=== PATIENT | female | born 1985 | race Caucasian/White ===

== ENCOUNTER 2019-03-13 00:08 | Emergency (ER) | payer OTHER ==
[~2019-03-13] VITALS: Ht 160 cm; Wt 127.9 kg
--- OUTSIDE RECORDS SUMMARY | ~2019-03-13 | XMS | Encounter Summary ---
Demographics + + + | Address | [address] | | | [place] [address] | + + + | Home Phone | | + + + | Preferred Language | Unknown | + + + | Marital Status | Unmarried Domestic Partner | + + + | Scientology Affiliation | Unknown | + + + | Race | White | + + + | Ethnic Group | Not or | + + + Author + + + | Author | [facility] [facility] | + + + | Organization | [facility] [employer] [facility] | + + + | Address | Unknown | + + + | Phone | Unavailable | + + + Support + + +---------+ + | Name | Relationship | Address | Phone | + + +---------+ + | Alen Perez | ECON | Unknown | | + + +---------+ + Care Team Providers + +------+ + | Care Wind Turbine Performance Engineer Name | Role | Phone | + +------+ + | Harpreet Hector MD | PCP | | + +------+ + Encounter Details +--------+ + + + + | Date | Type | Department | Care Team | Description | +--------+ + + + + | 08/20/ | Abstract | Digestive Health | Clinic, Surgery | | | 2019 | | [place] [facility] [address] | | | | | | [address] | | | | | | Mailcode: [place] | | | | | | for Health and | | | | | | Healing, [address] | | | | | | [place], [place] | | | | | | [address] | | | | | | [phone] | | | +--------+ + + + + Social History + +-------+ +--------+------+ | Tobacco Use | Types | Packs/Day | Years | Date | | | | | Used | | + +-------+ +--------+------+ | Never Assessed | | | | | + +-------+ +--------+------+ + + + | Sex Assigned at | Date Recorded | | | | + + + | Not on file | | + + + + + + + | Job Start Date | Occupation | Industry | + + + + | Not on file | Not on file | Not on file | + + + + + + + + | Travel History | Travel Start | Travel End | + + + + + + | No recent travel history available. | + + documented as of this encounter Plan of Treatment +--------+---------+ + + + | Date | Type | Specialty | Care Team | Description | +--------+---------+ + + + | 06/12/ | Office | Nutrition | [address] | | | 2019 | Visit | | [address] | | | | | | [place], | | | | | | [place] [address] | | +--------+---------+ + + + | 06/12/ | Office | Pain Management | Javon Gallego, | | | 2019 | Visit | | PhD [address] | | | | | | [place], [place] | | | | | | [address] | | | | | | [phone] | | | | | | | | +--------+---------+ + + + | 07/06/ | Office | Surgery | | | | 2019 | Visit | | | | +--------+---------+ + + + documented as of this encounter Visit Diagnoses Not on filedocumented in this encounter"
--- OUTSIDE RECORDS SUMMARY | ~2019-03-13 | XMS | Encounter Summary ---
Demographics + + + | Address | [address] | | | [place] [address] | + + + | Home Phone | | + + + | Preferred Language | Unknown | + + + | Marital Status | Unmarried Domestic Partner | + + + | Catholic Affiliation | Unknown | + + + | Race | White | + + + | Ethnic Group | Not or | + + + Author + + + | Author | [facility] | + + + | Organization | [facility] | + + + | Address | Unknown | + + + | Phone | Unavailable | + + + Support + + +---------+ + | Name | Relationship | Address | Phone | + + +---------+ + | Alen Perez | ECON | Unknown | | + + +---------+ + Care Team Providers + +------+ + | Care Molding Machine Operator Name | Role | Phone | + +------+ + | Harpreet Hector MD | PCP | | + +------+ + Encounter Details +--------+ + + + + | Date | Type | Department | Care Team | Description | +--------+ + + + + | 11/27/ | MyChart | Digestive Health | April Potts ACNP | RE: Pharmacy | | 2019 | Encounter | Center at [facility] [address] | [address] | | | | | [address] | [place], | | | | | Mailcode: Center | [place] [address] | | | | | for Health and | [phone] | | | | | [facility], [address] | | | | | | [place], [place] | | | | | | [address] | | | | | | [phone] | | | +--------+ + + + + Social History + +-------+ +--------+------+ | Tobacco Use | Types | Packs/Day | Years | Date | | | | | Used | | + +-------+ +--------+------+ | Former Smoker | | 1 | 3 | | + +-------+ +--------+------+ + +---+---+---+ | Smokeless Tobacco: | | | | | Never Used | | | | + +---+---+---+ + + + | Sex Assigned at [...] | | | | | | [place], | | | | | | [place] [address] | | +--------+---------+ + + + | 06/12/ | Office | Pain Management | Javon Gallego, | | | 2019 | Visit | | PhD [address] | | | | | | [place] | | | | | | [address] | | | | | | [phone] | | | | | | | | +--------+---------+ + + + | 07/06/ | Office | Surgery | | | | 2019 | Visit | | | | +--------+---------+ + + + documented as of this encounter Visit Diagnoses Not on filedocumented in this encounter"
--- OUTSIDE RECORDS SUMMARY | ~2019-03-13 | XMS | Encounter Summary ---
Demographics + + + | Address | [address] | | | [place] [address] | + + + | Home Phone | | + + + | Preferred Language | Unknown | + + + | Marital Status | Unmarried Domestic Partner | + + + | Latter Day Affiliation | Unknown | + + + | Race | White | + + + | Ethnic Group | Not or | + + + Author + + + | Author | [facility] [employer] [facility] | + + + | Organization | [facility] [employer] [facility] | + + + | Address | Unknown | + + + | Phone | Unavailable | + + + Support + + +---------+ + | Name | Relationship | Address | Phone | + + +---------+ + | Alen Perez | ECON | Unknown | | + + +---------+ + Care Team Providers + +------+ + | Care Dental Office Assistant Name | Role | Phone | + +------+ + | Harpreet Hector MD | PCP | | + +------+ + Reason for Referral Physical Therapy (Routine) +--------+--------+ + + + + | Status | Reason | Specialty | Diagnoses / | Referred By | Referred To | | | | | Procedures | Contact | Contact | +--------+--------+ + + + + | Closed | | Physical | Diagnoses | Welanjali, | Dar[facility] | | | | Therapy | Morbid | Madison Richard, | [address] | | | | | obesity | AGACNP [address] | | | | | (HCC) | [address] | Mailcode: | | | | | Procedures | [place], | [facility] | | | | | PHYSICAL | [place] | for Health | | | | | THERAPY | [address] | and Healing, | | | | | REFERRAL | Phone: | [address], | | | | | | | [address] | | | | | | Fax: | [place], [place] | | | | | | [phone] | [address] | | | | | | | Phone: | | | | | | | [phone] | | | | | | | Fax: | | | | | | | [phone] | +--------+--------+ + + + + Encounter Details +--------+ + + + + | Date | Type | Department | Care Team | Description | +--------+ + + + + | 08/20/ | Appliance Line Assembler | Digestive Health | Madison Cuevas, | Morbid obesity (HCC) | | 2019 | | Center at [facility] [address] | AGACNP [address] | (Primary Dx) | | | | [address] | Ave [place], [place] | | | | | Mailcode: Center | [address] | | | | | for Health and | | | | | | Healing, [address] | | | | | | [place], [place] | | | | | | [address] | | | | | | [phone] | | | +--------+ + + + [...] | [address] | | | 2020 | Visit | | [address] | | | | | | [place], | | | | | | [place] [address] | | +--------+---------+ + + + | 06/12/ | Office | Pain Management | Javon Gallego, | | | 2019 | Visit | | PhD [address] | | | | | | [place], [place] | | | | | | [address] | | | | | | [phone] | | | | | | | | +--------+---------+ + + + | 07/06/ | Office | Surgery | | | | 2019 | Visit | | | | +--------+---------+ + + + documented as of this encounter Visit Diagnoses + + | Diagnosis | + + | Morbid obesity (HCC) - Primary Morbid obesity | + + documented in this encounter"
--- OUTSIDE RECORDS SUMMARY | ~2019-03-13 | XMS | Encounter Summary ---
Demographics + + + | Address | [address] | | | [place] [address] | + + + | Home Phone | | + + + | Preferred Language | Unknown | + + + | Marital Status | Unknown | + + + | Synagogue Affiliation | Unknown | + + + | Race | Unknown | + + + | Ethnic Group | Unknown | + + + Author + + + | Author | [facility] | | | and [facility] | + + + | Organization | [facility] | | | and [place] | + + + | Address | Unknown | + + + | Phone | Unavailable | + + + Support +--------+ +---------+ + | Name | Relationship | Address | Phone | +--------+ +---------+ + | One No | ECON | Unknown | | +--------+ +---------+ + Care Team Providers + +------+ + | Care Rcis Name | Role | Phone | + +------+ + | Harpreet Hector MD | PCP | | + +------+ + Encounter Details +--------+ + + + + | Date | Type | Department | Care Team | Description | +--------+ + + + + | 10/26/ | Orders Only | [facility] | Conversion | | | 2018 | | CONVERSION DEP [address] | Transaction, | | | | | [address] | Provider Unknown | | | | | [place] | | | | | | [address] | (Fax) | | | | | [phone] | | | +--------+ + + + + Social History + +-------+ +--------+------+ | Tobacco Use | Types | Packs/Day | Years | Date | | | | | Used | | + +-------+ +--------+------+ | Never Smoker | | | | | + +-------+ [...] as of this encounter Plan of Treatment Not on filedocumented as of this encounter Visit Diagnoses Not on filedocumented in this encounter"
--- OUTSIDE RECORDS SUMMARY | ~2019-03-13 | XMS | Encounter Summary ---
Demographics + + + | Address | [address] | | | [place] [address] | + + + | Home Phone | | + + + | Preferred Language | Unknown | + + + | Marital Status | Unmarried Domestic Partner | + + + | Jehovah'S Witness Affiliation | Unknown | + + + | Race | White | + + + | Ethnic Group | Not or | + + + Author + + + | Author | [facility] | + + + | Organization | [facility] | + + + | Address | Unknown | + + + | Phone | Unavailable | + + + Support + + +---------+ + | Name | Relationship | Address | Phone | + + +---------+ + | Alen Preez | ECON | Unknown | | + + +---------+ + Care Team Providers + +------+ + | Care Transportation Department Head Name | Role | Phone | + +------+ + | Harpreet Hector MD | PCP | | + +------+ + Encounter Details +--------+ + + + + | Date | Type | Department | Care Team | Description | +--------+ + + + + | 08/21/ | Documentati | Digestive Health | April Potts ACNP | | | 2019 | on | Center at [facility] [address] | [address] | | | | | [address] | [place], | | | | | Mailcode: [place] | [place] [address] | | | | | for Health and | [phone] | | | | | [facility] [address] | | | | | | [place], [place] | | | | | | [address] | | | | | | [phone] | | | +--------+ + + + [...] | | | | | | [place], | | | | | | [place] [address] | | +--------+---------+ + + + | 06/12/ | Office | Pain Management | Javon Gallego, | | | 2019 | Visit | | PhD [address] | | | | | | [place] | | | | | | [address] | | | | | | [phone] | | | | | | | | +--------+---------+ + + + | 07/06/ | Office | Surgery | | | | 2019 | Visit | | | | +--------+---------+ + + + documented as of this encounter Visit Diagnoses Not on filedocumented in this encounter"
--- OUTSIDE RECORDS SUMMARY | ~2019-03-13 | XMS | Clinical Summary ---
Demographics + + + | Address | [address] | | | [place] [address] | + + + | Home Phone | | + + + | Preferred Language | Unknown | + + + | Marital Status | Unmarried Domestic Partner | + + + | Synagogue Affiliation | Unknown | + + + | Race | White | + + + | Ethnic Group | Not or | + + + Author + + + | Author | [facility] | + + + | Organization | [facility] | + + + | Address | Unknown | + + + | Phone | Unavailable | + + + Support + + +---------+ + | Name | Relationship | Address | Phone | + + +---------+ + | Alen Perez | ECON | Unknown | | + + +---------+ + Care Team Providers + +------+ + | Care Haul Truck Driver Name | Role | Phone | + +------+ + | Harpreet Hector MD | PCP | | + +------+ + Source Comments TWIN is fully live on both [facility] and [facility] InPatient.[facility] Allergies No Known Allergies Medications + + + +---------+------+------+-------+ | Medication | Sig | Dispensed | Refills | Star | End | Statu | | | | | | t | Date | s | | | | | | Date | | | + + + +---------+------+------+-------+ | amLODIPine 5 mg | | | 0 | 06/2 | | Activ | | oral tablet | | | | 20 | | e | | | | | | 19 | | | + + + +---------+------+------+-------+ | ergocalciferol | Take 1 capsule by | 12 | 0 | 10/0 | | Activ | | 50,000 unit oral | mouth every seven | capsule | | 3/20 | | e | | capsuleIndications: | days. For 12 weeks | | | 19 | | | | vitamin D deficiency | Indications: Vitamin | | | | | | | (high dose therapy) | D Deficiency (High | | | | | | | | Dose Therapy) | | | | | | + + + +---------+------+------+-------+ | cholecalciferol | Take 1 capsule by | 90 | 1 | 10/0 | | Activ | | (Vitamin D3) | mouth once daily. | capsule | | 3/20 | | e | | (VITAMIN D3) 2,000 | | | | 19 | | | | unit oral capsule | | | | | | | + + + +---------+------+------+-------+ Active Problems + + + | Problem | Noted Date | + + + | Morbid obesity | 11/15/2018 | + + + Encounters +--------+ + + + + | Date | Type | Specialty | Care Team | Description | +--------+ + + + + | 03/12/ | MyChart | Surgery | | Bariatric homework | | 2019 | Encounter | | | list update | +--------+ + + + + | 02/04/ | MyChart | Surgery | Petcu, Aura, ACNP | Pre op | | 2018 | Encounter | | | | +--------+ + + + + | 01/06/ | Abstract | Surgery | Clinic, Surgery | Medical Records | | 2018 | | | | Review | +--------+ + + + + from Last 3 Months Family History + + +------+ + | Medical History | Relation | Name | Comments | + + +------+ + | No Known Problems | Brother | | | + + +------+ + + +------+--------+ + | Relation | Name | Status | Comments | + +------+--------+ + | Brother | | Alive | | + +------+--------+ + Social History + +-------+ +--------+------+ | [...] recent travel history available. | + + Last Filed Vital Signs + + + + + | Vital Sign | Reading | Time Taken | Comments | + + + + + | Blood Pressure | 131/81 | 11/15/2018 12:53 PM | | | | | PDT | | + + + + + | Pulse | 74 | 11/15/2018 12:53 PM | | | | | PDT | | + + + + + | Temperature | 36.9 C (98.4 F) | 11/15/2018 12:53 PM | | | | | PDT | | + + + + + | Respiratory Rate | 14 | 11/15/2018 12:53 PM | | | | | PDT | | + + + + + | Oxygen Saturation | 99% | 11/15/2018 12:53 PM | | | | | PDT | | + + + + + | Inhaled Oxygen | - | - | | | Concentration | | | | + + + + + | Weight | 128.3 kg (282 lb | 11/15/2018 12:53 PM | | | | 12.8 oz) | PDT | | + + + + + | Height | 160 cm (5' 3") | 11/15/2018 12:53 PM | | | | | PDT | | + + + + + | Body Mass Index | 50.1 | 11/15/2018 12:53 PM | | | | | PDT | | + + + + + Plan of Treatment +--------+---------+ + + + | Date | Type | Specialty | Care Team | Description | +--------+---------+ + + + | 06/12/ | Office | Nutrition | [address] | | | 2019 | Visit | | [address] | | | | | | [place], | | | | | | [place] [address] | | +--------+---------+ + + + | 06/12/ | Office | Pain Management | Javon Gallego, | | | 2019 | Visit | | PhD [address] | | | | | | [place], [place] | | | | | | [address] | | | | | | [phone] | | | | | | | | +--------+---------+ + + + | 07/06/ | Office | Surgery | | | | 2020 | Visit | | | | +--------+---------+ + + + + + + + + | Health Maintenance | Due Date | Last Done | Comments | + + + + + | Influenza (Flu) | Completed | 01/02/2019, 01/15/2018, | | | vaccination | | 12/22/2016, Additional history | | | | | exists | | + + + + + | Pneumococcal | Aged Out | | No longer eligible | | vaccination | | | based on patient's | | | | | age to complete this | | | | | topic | + + + + + Results Not on filefrom Last 3 Months Insurance + +--------+ +--------+-------+---------+--------+ | Payer | Benefi | Subscriber | Effect | Phone | Address | Type | | | t Plan | ID | jenny | | | | | | / | | Dates | | | | | | Group | | | | | | + +--------+ +--------+-------+---------+--------+ | [employer] MEDICAID | HEBREW TE[employer]ER | xxxxxxxx | | | | Medica | | | [place] | | [id number] | | | id | | | [place] | | esent | | | | + +--------+ +--------+-------+---------+--------+ + +--------+ +--------+ + + | Guarantor Name | Accoun | Relation to | Date | Phone | Billing Address | | | t Type | Patient | of | | | | | | | | | | + +--------+ +--------+ + + | Arely Squires | Person | Self | [birth year] | | | | al/Fam | | 1986 | [phone] | [place] [address] | | | [place] | | | 4 (Home) | | + +--------+ +--------+ + +
--- OUTSIDE RECORDS SUMMARY | ~2019-03-13 | XMS | Clinical Summary ---
Demographics + + + | Address | [address] | | | [place] [address] | + + + | Home Phone | | + + + | Preferred Language | Unknown | + + + | Marital Status | Unknown | + + + | Quaker Affiliation | Unknown | + + + | Race | Unknown | + + + | Ethnic Group | Unknown | + + + Author + + + | Author | [facility] [employer] (Historical as of | | | 10-12-18) | + + + | Organization | [facility] [employer] (Historical as of | | | 10-12-18) | + + + | Address | Unknown | + + + | Phone | Unavailable | + + + Support +--------+ +---------+ + | Name | Relationship | Address | Phone | +--------+ +---------+ + | No,One | ECON | Unknown | | +--------+ +---------+ + Care Team Providers + +------+ + | Care Pocketbook Maker Name | Role | Phone | + +------+ + | Harpreet Hector MD | PP | | + +------+ + Allergies No Known Allergies Current Medications + + +--------+---------+------+------+-------+ | Prescription | Sig. | Disp. | Refills | Star | End | Statu | | | | | | t | Date | s | | | | | | Date | | | + + +--------+---------+------+------+-------+ | amLODIPine | | | | 08/1 | | Activ | | (NORVASC) 5 MG | | | | 9/20 | | e | | tablet | | | | 18 | | | + + +--------+---------+------+------+-------+ | betamethasone | Apply nightly to | 50 g | 11 | 08/ | | Activ | | dipropionate | area of rash on | | | 03/17 | | e | | (DIPROLENE) 0.05 % | hand. Best applied | | | 18 | | | | ointmentIndications: | to damp skin. May | | | | | | | Contact dermatitis, | use 2 weeks/month. | | | | | | | unspecified contact | | | | | | | | dermatitis type, | | | | | | | | unspecified trigger | | | | | | | + + +--------+---------+------+------+-------+ Active Problems No known active problems Social History + +-------+ +--------+------+ | Tobacco Use | Types | Packs/Day | Years | Date | | | | | Used | | + +-------+ +--------+------+ | Never Smoker | | | | | + +-------+ +--------+------+ + +---+---+---+ | Smokeless Tobacco: | | | | | Never Used | | | | + +---+---+---+ + + + | Sex Assigned at | Date Recorded | | | | + + + | Not on file | | + + + Last Filed Vital Signs + + + + | Vital Sign | Reading | Time Taken | + + + + | Blood Pressure | - | - | + + + + | Pulse | - | - | + + + + | Temperature | - | - | + + + + | Respiratory Rate | - | - | + + + + | Oxygen Saturation | - | - | + + + + | Inhaled Oxygen | - | - | | Concentration | | | + + + + | Weight | 126.1 kg (278 lb) | 10/26/2017 9:58 AM PDT | + + + + | Height | 160 cm (5' 3") | 10/26/2017 9:58 AM PDT | + + + + | Body Mass Index | 49.25 | 10/26/2017 9:58 AM PDT | + + + + Plan of Treatment + + + + + | Health Maintenance | Due Date | Last Done | Comments | + + + + + | Vaccine: | | | | | Dtap/Tdap/Td (1 - | 7 | | | | Tdap) | | | | + + + + + | Cervical Cancer | | | | | Screening (Pap) | 8 | | | + + + + + | Vaccine: Influenza | | | | | (#1) | 9 | | | + + + + + Results Not on filefrom Last 3 Months Insurance + +--------+ +------+-------+ + | Payer | Benefi | Subscriber | Type | Phone | Address | | | t Plan | ID | | | | | | / | | | | | | | Group | | | | | + +--------+ +------+-------+ + | MEDICAID | [place] | [id number] | | | [address] | | | [place] | | | | [place] | | | [place] | | | | [address] | | | [employer] | | | | | + +--------+ +------+-------+ + + +--------+ +--------+ + + | Guarantor Name | Accoun | Relation to | Date | Phone | Billing Address | | | t Type | Patient | of | | | | | | | | | | + +--------+ +--------+ + + | ARELY SQUIRES | Person | Self | [birth year] | Home: | [address] | | al/Fam | | 1985 | [phone] [place] [address] | | | [place] | | | [phone] | | + +--------+ +--------+ + +
--- OUTSIDE RECORDS SUMMARY | ~2019-03-13 | XMS | Encounter Summary ---
Demographics + + + | Address | [address] | | | [place] [address] | + + + | Home Phone | | + + + | Preferred Language | Unknown | + + + | Marital Status | Unmarried Domestic Partner | + + + | Rastafari Affiliation | Unknown | + + + | Race | White | + + + | Ethnic Group | Not or | + + + Author + + + | Author | [facility] [employer] [facility] | + + + | Organization | [facility] [employer] [facility] | + + + | Address | Unknown | + + + | Phone | Unavailable | + + + Support + + +---------+ + | Name | Relationship | Address | Phone | + + +---------+ + | Alen Perez | ECON | Unknown | | + + +---------+ + Care Team Providers + +------+ + | Care Manager Bench Name | Role | Phone | + +------+ + | Harpreet Hector MD | PCP | | + +------+ + Encounter Details +--------+ + + + + | Date | Type | Department | Care Team | Description | +--------+ + + + + | 11/19/ | Orders Only | Digestive Health | April Potts ACNP | | | 2019 | | Center at [facility] [address] | [address] | | | | | [address] | [place], | | | | | Mailcode: [place] | [place] [address] | | | | | for Health and | [phone] | | | | | [facility] [address] | | | | | | [place], [place] | | | | | | [address] | | | | | | [phone] | | | +--------+ + + + [...] | | | | | | [place] [address] | | +--------+---------+ + + + | 06/12/ | Office | Pain Management | Javon Gallego, | | | 2019 | Visit | | PhD [address] | | | | | | [place] | | | | | | [address] | | | | | | [phone] | | | | | | | | +--------+---------+ + + + | 07/06/ | Office | Surgery | | | | 2019 | Visit | | | | +--------+---------+ + + + documented as of this encounter Visit Diagnoses Not on filedocumented in this encounter"
--- OUTSIDE RECORDS SUMMARY | ~2019-03-13 | XMS ---
Demographics + + + | Address | [address] | | | [place] [address] | + + + | Preferred Language | Unknown | + + + | Marital Status | Unknown | + + + | Advent Affiliation | Unknown | + + + | Race | Unknown | + + + | Ethnic Group | Unknown | + + + Author + + + | Author | [facility] | + + + | Organization | [facility] | + + + | Address | 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 | Role | Phone | + + + + Unavailable | Unavailable | + + + + PROBLEMS +---------+ + + +--------+ + + | Type | Condition | ICD9-CM | [id number] | Onset | Condition | SNOMED | | | | Code | Code | Dates | Status | Code | +---------+ + + +--------+ + + | Problem | Cough | 786.2 | | | Active | 27709056 | +---------+ + + +--------+ + + | Problem | Strep | 034.0 | | | Active | [id number] | | | throat | | | | | | +---------+ + + +--------+ + + | Problem | Otitis | 382.9 | | | Active | [id number] | | | media | | | | | | +---------+ + + +--------+ + + | Problem | Elevated | R94.5 | | | Active | [id number] | | | LFTs | | | | | | +---------+ + + +--------+ + + | Problem | Family | Z80.3 | | | Active | [id number] | | | history of | | | | | | | | breast | | | | | | | | cancer | | | | | | +---------+ + + +--------+ + + | Problem | Back pain | | M54.9 | | Active | [id number] | +---------+ + + +--------+ + + | Problem | NAFLD | K76.0 | | | Active | [id number] | | | (nonalcoho | | | | | | | | lic fatty | | | | | | | | liver | | | | | | | | disease) | | | | | | +---------+ + + +--------+ + + | Problem | Overweight | | E66.3 | | Active | 131419707 | +---------+ + + +--------+ + + | Problem | Candidal | B37.2 | | | Active | [id number] | | | intertrigo | | | | | | +---------+ + + +--------+ + + ALLERGIES + + + + +---------+ | Substance | Reaction | Event Type | Date | Status | + + + + +---------+ | N.K.D.A. | Unknown | Non Drug | June, | Unknown | | | | Allergy | | | + + + + +---------+ SOCIAL HISTORY No smoking Hx information available PLAN OF CARE + +---------+ | Activity | Details | + +---------+ +---+ | | +---+ + + + | Follow Up | 4 Weeks Reason:null | + + + VITAL SIGNS + + + + | Height | 63 in | 2016-07-20 | + + + + | Weight | 262 lbs | 2016-07-20 | + + + + | BMI | 46.41 kg/m2 | 2016-07-20 | + + + + | Temperature | 97.6 degrees Fahrenheit | 2016-07-20 | + + + + | Heart Rate | 88 /min | 2016-07-20 | + + + + | Blood pressure systolic | 149 mm Hg | 2016-07-20 | + + + + | Blood pressure diastolic | 85 mm Hg | 2016-07-20 | + + + + MEDICATIONS + + +--------+ +--------+ + +--------+ | Medicati | Instruct | Dosage | Frequenc | Start | End Date | Duration | Status | | on | ions | | y | Date | | | | + + +--------+ +--------+ + +--------+ | Daily | | | | | | | Active | | Multivit | | | | | | | | | salgado - | | | | | | | | + + +--------+ +--------+ + +--------+ RESULTS + +--------+ + + | Name | Result | Date | Reference Range | + +--------+ + + | EBV Ab VCA, IgG | | 2016-07-20 | | + +--------+ + + | EBV Ab VCA, IgG | | | | + +--------+ + + | EBV Ab VCA, IgM | | 2016-07-20 | | + +--------+ + + | EBV Ab VCA, IgM | | | | + +--------+ + + | TODD w/Reflex if | | 2016-07-20 | | | Positive | | | | + +--------+ + + | Antinuclear | | | | | Antibodies Direct | | | | + +--------+ + + | Lipid Panel | | 2016-07-20 | | + +--------+ + + | Cholesterol, Total | | | | + +--------+ + + | Triglycerides | | | | + +--------+ + + | HDL Cholesterol | | | | + +--------+ + + | VLDL Cholesterol | | | | | Ludwig | | | | + +--------+ + + | LDL Cholesterol | | | | | Calc | | | | + +--------+ + + | Comprehensive | | 2016-07-20 | | | Metabolic Panel | | | | + +--------+ + + | Hepatitis BC Panel | | 2016-07-20 | | + +--------+ + + | HBSAG | | | | + +--------+ + + | HEPATITIS B VIRUS | | | | | SURFACE ANTIBODY, | | | | | POST-VACCINATION | | | | + +--------+ + + | HEPATITIS B CORE | | | | | ANTIBODIES, TOTAL | | | | + +--------+ + + | HEPATITIS C VIRUS | | | | | ANTIBODY | | | | + +--------+ + + | INTERP | | | | + +--------+ + + | GGT | | 2016-07-20 | | + +--------+ + + | GGT | | | | + +--------+ + + | Smooth Muscle Ab | | 2016-07-20 | | + +--------+ + + | SMOOTH MUSCLE AB | | | | + +--------+ + + | Microsomal Antibody | | 2016-07-20 | | + +--------+ + + | MICROSOMAL ANTIBODY | | | | + +--------+ + + | CMV Detection by | | 2016-07-20 | | | Rapid PCR | | | | + +--------+ + + | CMV DNA | | | | + +--------+ + + | CMV Special Info | | | | + +--------+ + + | CMV Specimen Source | | | | + +--------+ + + | HGB A1C A1C | | 2016-07-20 | | + +--------+ + + | Gluc Mean | | | | + +--------+ + + | Hgb A1c | | | | + +--------+ + + | Ultrasound: Liver | | 2016-08-14 | | + +--------+ + + PROCEDURES + + + + + | Procedure | Date Ordered | Related Diagnosis | Body Site | + + + + + | EST Pt. Level V | July 20, 2016 | | | | Comprehensive | | | | + + + + + | DSCHRG MED/CURRENT | July 20, 2016 | | | | MED MERGE | | | | + + + + + IMMUNIZATIONS No Known Immunizations"
--- OUTSIDE RECORDS SUMMARY | ~2019-03-13 | XMS | Encounter Summary ---
Demographics + + + | Address | [address] | | | [place] [address] | + + + | Home Phone | | + + + | Preferred Language | Unknown | + + + | Marital Status | Unmarried Domestic Partner | + + + | Spiritism Affiliation | Unknown | + + + | Race | White | + + + | Ethnic Group | Not or | + + + Author + + + | Author | [facility] | + + + | Organization | [facility] | + [...] Team Providers + +------+ + | Care Rcp Name | Role | Phone | + +------+ + PCP | Unavailable | + +------+ + Encounter Details +--------+ + + + + | Date | Type | Department | Care Team | Description | +--------+ + + + + | 07/17/ | Abstract | [facility]ive [facility] | Clinic, Surgery | | | 2019 | | [place] [facility] [address] | | | | | | [address] | | | | | | Mailcode: [place] | | | | | [facility] | | | | | [facility], [address] | | | | | | [place], [place] | | | | | | [address] | | | | | | [phone] | | | +--------+ + + + [...] | | | | | [address] [place], | | | | | | [place] [address] | | +--------+---------+ + + + | 06/12/ | Office | Pain Management | Javon Gallego, | | | 2019 | Visit | | PhD [address] | | | | | | [place], [place] | | | | | | [address] | | | | | | [phone] | | | | | | | | +--------+---------+ + + + | 07/06/ | Office | Surgery | | | | 2019 | Visit | | | | +--------+---------+ + + + documented as of this encounter Visit Diagnoses Not on filedocumented in this encounter"
--- OUTSIDE RECORDS SUMMARY | ~2019-03-13 | XMS | Encounter Summary ---
Demographics + + + | Address | [address] | | | [place] [address] | + + + | Home Phone | | + + + | Preferred Language | Unknown | + + + | Marital Status | Unmarried Domestic Partner | + + + | Restorationist Affiliation | Unknown | + + + | Race | White | + + + | Ethnic Group | Not or | + + + Author + + + | Author | [facility] | + + + | Organization | [facility] | + + + | Address | Unknown | + + + | Phone | Unavailable | + + + Support + + +---------+ + | Name | Relationship | Address | Phone | + + +---------+ + | Alen Perez | ECON | Unknown | | + + +---------+ + Care Team Providers + +------+ + | Care Newspaper Delivery Counselor Name | Role | Phone | + +------+ + | Harpreet Hector MD | PCP | | + +------+ + Reason for Referral Consultation (Routine) + +---------+ + + + + | Status | Reason | Specialty | Diagnoses / | Referred By | Referred To | | | | | Procedures | Contact | Contact | + +---------+ + + + + | New Request | Other | Psychology / | Diagnoses | Petcu, | Drafter Seismograph Psych | | | | Pain | Morbid | Aura, ACNP | [facility] [address] | | | | Management | obesity | [address] | [address] | | | | | (RAFAEL) | [place] | Mailcode: | | | | | Procedures | Rd | [facility] | | | | | CONSULT TO | [place], [place] | for Health | | | | | PAIN | [address] | and Healing, | | | | | MANAGEMENT | Phone: | Building [address], | | | | | | [phone] | [address]th Floor | | | | | | Fax: | [place], [place] | | | | | | [phone] | [address] | | | | | | | Phone: | | | | | | | [phone] | | | | | | | Fax: | | | | | | | [phone] | + +---------+ + + + + Reason for Visit Consultation (Routine) +--------+ + + + + + | Status | Reason | Specialty | Diagnoses / | Referred By | Referred To | | | | | Procedures | Contact | Contact | +--------+ + + + + + | Closed | BAR: | Surgery | | Non-[facility] | Bar | | | Scheduled | | | Epic Dept | [facility] | | | with SUPERVISING ARCHITECT | | | | [facility] [address] | | | | | | | [address] | | | | | | | Mailcode: | | | | | | | Center for | | | | | | | Health and | | | | | | | Healing, | | | | | | | Building [address] | | | | | | | [place], [place] | | | | | | | [address] | | | | | | | Phone: | | | | | | | [phone] | | | | | | | Fax: | | | | | | | [phone] | +--------+ + + + + + Encounter Details +--------+---------+ + + + | Date | Type | Department | Care Team | Description | +--------+---------+ + + + | 11/15/ | Office | Digestive Health | April Potts ACNP | Morbid obesity (HCC) | | 2019 | Visit | Center at [facility] [address] | [address] | (Primary Dx) | | | | [address] | [address] [place], | | | | | Mailcode: [place] | [place] [address] | | | | | for Health and | [phone] | | | | | Healing, [address] | | | | | | [place], [place] | | | | | | [address] | | | | | | [phone] | | | +--------+---------+ + + + Social History + +-------+ [...] + + documented as of this encounter Last Filed Vital Signs + + + [...] | | + + + + + documented in this encounter Patient Instructions Patient Instructions April Potts ACNP - 11/15/2018 12:50 PM PDT Preoperative Evaluation fo r Bariatric Surgery: + Labs needed: CBC, CMP, A1C, Lipids, PTH, Vitamin D25, Vitamin B12, Ferritin, Iron and TIBC, Thiamine (B1), MMA and homocysteine (Folate indicators), + Please start taking a daily multivitamin such as Centrum for Adults, Equate Version of Ce ntrum for Adults ([employer] brand) and Hernández Daily Multivitamin + control: The patient and I discussed that fertility is MARKEDLY increased after carter joo due to rapid weight loss. Please consider using an effective form of control that does not have estrogen ( most control pills and the Nuva Ring have estrogen). Estroge n can be a risk factor for blood clots in legs or lungs. We do not want you to become pregna nt the first two years after surgery as it can harm the unborn baby. This is why we recommen d not getting in the first two years after bariatric surgery. The patient voiced an d understanding of the risk and counseling. + Pap test: Please obtain through your primary care and we want to see the lab result from the PAP smear. (not the note from your provider) + EKG: Please have your primary care provider order this and have the report faxed to us + Pre-op Psychological Evaluation: Your referral is at [facility], the Pain Management Office w ill call you in the next week to schedule. + CPAP compliance: you will need to show CPAP compliance prior to surgery + Recommended weight loss: Every patient has a individual weight loss target. It takes int o consideration your current weight and BMI. Your target most likely will be different than anyone elses target. Please contact us if you are having trouble with weight loss, we are he re to help! Measure your arm, waist, leg, and any other area of your body now so you can com pare after surgery! If your BMI is greater than 50 then your recommended weight loss target is 10% of your cur rent weight or 28lbs + Weight Management classes: 2 classes are required in addition to your private appointme nt with the disintegrator. These classes will be scheduled apporoximately 1 month apart to allow time for you to put the teaching into action. Please call [phone] to schedule these classes after you have had your Dietitia n Appointment You can over eat ANY of the surgeries. The surgery is a tool with diet and exercise to help you obtain a healthy weight. + Insurance requirements: 6 month evaluation Each insurance can have different requirements. Please CHECK with your insurance company to be sure you are meeting their requirements. If you have any questions please call your insu eleazar provider or call our main office number [phone] to have us help clarify. Note: It can take up to 1 year to get to surgery date. +patient willing and able to be compliant with post operative treatment plan + Sign up for RunRev so that we can communicate easily back and forth Once the above list is completed and copies have been received by our office, we will submi t for insurance authorization then schedule with the surgeon. +Please join us for our twice monthly [facility] Bariatric Support Group meetings on the WangYou platform. Download the yumiko on your smartphone or visit the website [email or web address]. Click "join a meeting " enter the meeting number below at the scheduled time. Our monthly schedule is as follows: The Sunday of every month at 5:30PM The Sunday of every month at 1:00PM The meeting number is: [phone] Please note that this is an optional support group, not mandatory, but can be helpful throu gh out your bariatric journey. Potential Contraindications to Bariatric Surgery Age over 69 BMI over 60 Oxygen dependence Immobility wheelchair or bed bound Cardiac issues such as ischemic heart disease as indicated on cardiac stress test or cardia c catheterization; severe or uncompensated heart failure which may be indicated by a decreas ed ejection fraction. Pulmonary issues such as untreated sleep apnea, obesity hypoventilation syndrome, severe CO PD or asthma. Liver disease such as cirrhosis, esophageal varices, or portal hypertension. Severe, untreated renal disease. Rheumatologic and other diseases requiring immune suppressant medications. Untreated or active cancer. Untreated psychological disability. If you have any of the above conditions, you may not be a candidate for bariatric surgery. Our program will perform a thorough evaluation prior to making such a determination. This evaluation may involve testing or consultations. We will make every effort to notify patien ts who are not candidates for surgery as early in the process as possible, but it is importa nt to realize that the surgeon may make that determination later in the process. Clearance for surgery by your PCP or other providers does not guarantee that the [facility] Bariatric Surger y program will deem you a surgical candidate. documented in this encounter Progress Notes Larry Stockton - 11/15/2018 12:50 PM PDTPatient presents for blood draw per Providers order Site: RIGHT A/C Time: 13:25 Patient tolerated well; TWO ATTEMPTS etcu, ROLANDO Chen - 2018 12:50 PM PDT BARIATRIC SURGERY INITIAL VISIT Provider: April Potts, MSN, -ACNP, DRILLING ENGINEER Referring Provider: Theresa Hector Reason for Requested Consultation: Initial evaluation for bariatric surgery. Arely lin is interested in sleeve gastrectomy. BP 131/81 | Pulse 74 | Temp 36.9 C (98.4 F) (Oral) | Resp 14 | Ht 1.6 m (5' 3") | Wt 128.3 kg (282 lb 12.8 oz) | SpO2 99% | BMI 50.10 kg/m | BSA 2.39 m History of Present Illness: Arely Squires is a 33 y.o. female who presents with a pas t medical history of morbid obesity with a Body mass index is 50.1 kg/m. and associated hy pertension. She has failed prior attempts at sustained dietary/medical weight loss and racheal res surgical weight loss in order to "to be able to live a better life". Previous Weight Loss Attempts: Duration of obesity: 6 years. Onset of obesity at age 27 First diet attempts at age 27 Personally initiated diets: keto Programmatic diets: none Provider Monitored diet: diabetic diet Use of Redux or Phen/fen: no Transthoracic ECHO: na Restorationist or cultural reason you would refuse blood products? no All previous chart notes from PCP reviewed, previous tests and labs reviewed. Allergies: No Known Allergies Medications Current Outpatient Medications: amLODIPine 5 mg oral tablet, , Disp: , Rfl: History: Past Medical History: Diagnosis Date GERD (gastroesophageal reflux disease) Headache Hypertension Irregular periods Leaking of urine SOB (shortness of breath) Past Surgical History Procedure Laterality Date Appendectomy Caesarean section Caesarean section Social History Socioeconomic History Marital status: Unmarried Domestic Partner Spouse name: Not on file Number of children: Not on file Years of education: Not on file Highest education level: Not on file Occupational History Not on file Social Needs Financial resource strain: Not on file Food insecurity: Worry: Not on file Inability: Not on file Transportation needs: Medical: Not on file Non-medical: Not on file Tobacco Use Smoking status: Former Smoker Packs/day: 1.00 Years: 3.00 Pack years: 3.00 Smokeless tobacco: Never Used Substance and Sexual Activity Alcohol use: Not on file Drug use: Not on file Sexual activity: Not on file Lifestyle Physical activity: Days per week: Not on file Minutes per session: Not on file Stress: Not on file Relationships Social connections: Talks on phone: Not on file Gets together: Not on file Attends muslim service: Not on file Active member of club or organization: Not on file Attends meetings of clubs or organizations: Not on file Relationship status: Not on file Other Topics Concern Not on file Social History Narrative Not on file Family History Problem Relation No Known Problems Brother Review of Systems: General: Intermittent symptoms of fatigue. Denies weakness, unintentional weight loss, fev ers, chills, night sweats. Neurologic: The patient denies any symptoms of neurological impairment or TIAs; denies dip lopia, dysphasia or unilateral disturbance of motor or sensory function. Denies loss of carol nce or vertigo, persistent headaches, numbness or paresthesias. No history of seizure disord er. Eyes/Ears/Nose/Throat: Denies visual changes, sore throat, dental pain, hoarseness, dyspha ruben, oral or tongue lesions. Respiratory: Positive SOBOE. Denies shortness of breath at rest, cough or wheezing. Denies history of asthma. Denies nocturnal snoring, daytime drowsiness or morning headaches. Posi tive sleep apnea. Cardiovascular: Denies exertional chest pain, palpitations, syncope, orthopnea, or paroxys mal nocturnal dyspnea. Denies history of lower extremity edema. Positive hypertension. Hema es hyperlipidemia. Denies CHF, AK, ischemic heart disease, DVT/PE, or pulmonary hypertension . States able to climb two flights of stairs. Family hxnone Gastrointestinal: Denies abdominal or flank pain, anorexia, nausea or vomiting, dysphagia, change in bowel habits, black or bloody stools. Denies history of ulcers or hernias. Denies persistent reflux symptoms. Denies history of liver disease or jaundice. Genitourinary: Denies urinary incontinence. Denies history of kidney stones. Denies pros birch sx. Denies menstrual irregularity, history of endometriosis or abnormal PAP's. Current method of control is: none. Musculoskeletal: Denies symptoms of joint pain, swelling, myalgias or back pain. Skin: Denies intertrigenous skin infections. Denies recent rashes, sores, or skin changes. Psychological: Denies anxiety, depression, thoughts of suicide or hallucinations. Heme/Lymphatic: Denies history of anemia. The patient denies abnormal bruising, abnormal b leeding or enlarged lymph nodes. Metabolic: Denies symptoms of hypo or hyperthyroidism. Denies history of diabetes. Denies history of gout. OBJECTIVE BP 131/81 | Pulse 74 | Temp 36.9 C (98.4 F) (Oral) | Resp 14 | Ht 1.6 m (5' 3") | Wt 128.3 kg (282 lb 12.8 oz) | SpO2 99% | BMI 50.10 kg/m | BSA 2.39 m Physical exam: General: Alert and cooperative. Neuro: Oriented x 3. CN III-XII grossly intact. No focal deficits. HEENT: Oropharynx clear without lesion or exudate. Neck: Neck supple. No adenopathy. Respiratory: Good diaphragmatic excursion. Cardiac: Regular rate and rhythm, no murmur, gallop or bruits. Extremities: none lower extremity edema. Abdomen: Obese, soft, nontender, no appreciable masses or hernia. Psych: No problems noted. Impression: Arely Squires meets and or exceeds NIH criteria for morbid obesity with a Body mass i ndex is 50.1 kg/m. and comorbidities related to obesity including hypertension, which may be improved with bariatric surgery. Records have been reviewed from her PCM and several att empts have been made to lose weight over the past years without success. She qualifies for medically necessary weight loss surgery to control co-morbidities. She has attended the Public Informational Session in which risks and benefits of bariatric surgery were discussed. Discussion of realistic expectations of bariatric surgery was held today. A Bariatric notebook with pre-op, inter-op and post-op guidance and information was provide d for the patient today. #morbid obesity #fatty liver #hx GM #GERD With food choices, occasional h2B #HTN amlodipine Plan: The following plan has been provided to Arely Squires: Preoperative Evaluation for Bariatric Surgery: + Labs needed: CBC, CMP, A1C, Lipids, PTH, Vitamin D25, Vitamin B12, Ferritin, Iron and TIBC, Thiamine (B1), MMA and homocysteine (Folate indicators), + Please start taking a daily multivitamin such as Centrum for Adults, Equate Version of Ce ntrum for Adults ([employer] brand) and Hernández Daily Multivitamin + control: The patient and I discussed that fertility is MARKEDLY increased after carter joo due to rapid weight loss. Please consider using an effective form of control that does not have estrogen ( most control pills and the Nuva Ring have estrogen). Estroge n can be a risk factor for blood clots in legs or lungs. We do not want you to become pregna nt the first two years after surgery as it can harm the unborn baby. This is why we recommen d not getting in the first two years after bariatric surgery. The patient voiced an d understanding of the risk and counseling. + Pap test: Please obtain through your primary care and we want to see the lab result from the PAP smear. (not the note from your provider) + EKG: Please have your primary care provider order this and have the report faxed to us + Pre-op Psychological Evaluation: Your referral is at [facility], the Pain Management Office w ill call you in the next week to schedule. + CPAP compliance: you will need to show CPAP compliance prior to surgery + Recommended weight loss: Every patient has a individual weight loss target. It takes int o consideration your current weight and BMI. Your target most likely will be different than anyone elses target. Please contact us if you are having trouble with weight loss, we are he re to help! Measure your arm, waist, leg, and any other area of your body now so you can com pare after surgery! If your BMI is greater than 50 then your recommended weight loss target is 10% of your cur rent weight or 28lbs + Weight Management classes: 2 classes are required in addition to your private appointme nt with the disintegrator. These classes will be scheduled apporoximately 1 month apart to allow time for you to put the teaching into action. Please call [phone] to schedule these classes after you have had your Dietitia n Appointment You can over eat ANY of the surgeries. The surgery is a tool with diet and exercise to help you obtain a healthy weight. + Insurance requirements: 6 month evaluation Each insurance can have different requirements. Please CHECK with your insurance company to be sure you are meeting their requirements. If you have any questions please call your insu eleazar provider or call our main office number [phone] to have us help clarify. Note: It can take up to 1 year to get to surgery date. +patient willing and able to be compliant with post operative treatment plan + Sign up for RunRev so that we can communicate easily back and forth Once the above list is completed and copies have been received by our office, we will submi t for insurance authorization then schedule with the surgeon. +Please join us for our twice monthly [facility] Bariatric Support Group meetings on the WangYou platform. Download the yumiko on your smartphone or visit the website [email or web address]. Click "join a meeting " enter the meeting number below at the scheduled time. Our monthly schedule is as follows: The Sunday of every month at 5:30PM The Sunday of every month at 1:00PM The meeting number is: [phone] Please note that this is an optional support group, not mandatory, but can be helpful throu gh out your bariatric journey. Potential Contraindications to Bariatric Surgery Age over 69 BMI over 60 Oxygen dependence Immobility wheelchair or bed bound Cardiac issues such as ischemic heart disease as indicated on cardiac stress test or cardia c catheterization; severe or uncompensated heart failure which may be indicated by a decreas ed ejection fraction. Pulmonary issues such as untreated sleep apnea, obesity hypoventilation syndrome, severe CO PD or asthma. Liver disease such as cirrhosis, esophageal varices, or portal hypertension. Severe, untreated renal disease. Rheumatologic and other diseases requiring immune suppressant medications. Untreated or active cancer. Untreated psychological disability. If you have any of the above conditions, you may not be a candidate for bariatric surgery. Our program will perform a thorough evaluation prior to making such a determination. This evaluation may involve testing or consultations. We will make every effort to notify patien ts who are not candidates for surgery as early in the process as possible, but it is importa nt to realize that the surgeon may make that determination later in the process. Clearance for surgery by your PCP or other providers does not guarantee that the [facility] Bariatric Surger y program will deem you a surgical candidate. April Potts, MSN, AG-ACNP, DRILLING ENGINEER Bariatric Surgery Nurse Practitioner [facility] | [address] | [place], [place] | [address] | I have spent 60 min with this pt face to face. Over 50% of the visit was counseling on the above listed content. documented in this enco unter Plan of Treatment +--------+---------+ + + + | Date | Type | Specialty | Care Team | Description | +--------+---------+ + + + | 06/12/ | Office | Nutrition | [address] | | 2019 | Visit | | [address] | | | | | | [place] | | | | | | [place] [address] | | +--------+---------+ + + + | 06/12/ | Office | Pain Management | Javon Gallego, | | | 2019 | Visit | | PhD [address] | | | | | | [place], [place] | | | | | | [address] | | | | | | [phone] | | | | | | | | +--------+---------+ + + + | 07/06/ | Office | Surgery | | | | 2020 | Visit | | | | +--------+---------+ + + + + + +--------+ + + | Name | Type | Priori | Associated Diagnoses | Order Schedule | | | | ty | | | + + +--------+ + + | ROUTINE | Procedures | Routin | Morbid obesity | Ordered: 11/15/2018 | | VENIPUNCTURE, | | e | ([facility]) | | | VENOUS-BACK OFFICE | | | | | + + +--------+ + + documented as of this encounter Procedures + +--------+ + + + | Procedure Name | Priori | Date/Time | Associated Diagnosis | Comments | | | ty | | | | + +--------+ + + + | CBC (HEMOGRAM) ONLY | Routin | 11/15/2018 | Morbid obesity | Results for this | | | e | 1:51 PM | (HCC) | procedure are in the | | | | PDT | | results section. | + +--------+ + + + | VITAMIN B1, WHOLE | Routin | 11/15/2018 | Morbid obesity | Results for this | | BLOOD | e | 1:51 PM | (HCC) | procedure are in the | | | | PDT | | results section. | + +--------+ + + + | VITAMIN D, | Routin | 11/15/2018 | Morbid obesity | Results for this | | 25-HYDROXY, SERUM | e | 1:51 PM | (HCC) | procedure are in the | | | | PDT | | results section. | + +--------+ + + + | HOMOCYSTEINE TOTAL, | Routin | 11/15/2018 | Morbid obesity | Results for this | | PLASMA | e | 1:51 PM | (HCC) | procedure are in the | | | | PDT | | results section. | + +--------+ + + + | COMPLETE METABOLIC | Routin | 11/15/2018 | Morbid obesity | Results for this | | SET | e | 1:51 PM | (HCC) | procedure are in the | | (NA,K,CL,CO2,BUN,CRE | | PDT | | results section. | | AT,GLUC,CA,AST,ALT,B | | | | | | ESTELITA TOTAL,ALK | | | | | | PHOS,ALB,PROT TOTAL) | | | | | + +--------+ + + + | METHYLMALONIC ACID, | Routin | 11/15/2018 | Morbid obesity | Results for this | | SERUM | e | 1:51 PM | (HCC) | procedure are in the | | | | PDT | | results section. | + +--------+ + + + | CBC ONLY | Routin | 11/15/2018 | Morbid obesity | Results for this | | | e | 1:51 PM | (HCC) | procedure are in the | | | | PDT | | results section. | + +--------+ + + + | FERRITIN | Routin | 11/15/2018 | Morbid obesity | Results for this | | | e | 1:51 PM | (HCC) | procedure are in the | | | | PDT | | results section. | + +--------+ + + + | PTH, SERUM | Routin | 11/15/2018 | Morbid obesity | Results for this | | | e | 1:51 PM | (HCC) | procedure are in the | | | | PDT | | results section. | + +--------+ + + + | LIPID SET (TRIG, T | Routin | 11/15/2018 | Morbid obesity | Results for this | | CHOL, HDL, CALC LDL) | e | 1:51 PM | (HCC) | procedure are in the | | | | PDT | | results section. | + +--------+ + + + | VITAMIN B-12 | Routin | 11/15/2018 | Morbid obesity | Results for this | | | e | 1:51 PM | (HCC) | procedure are in the | | | | PDT | | results section. | + +--------+ + + + | HEMOGLOBIN A1C, | Routin | 11/15/2018 | Morbid obesity | Results for this | | BLOOD | e | 1:51 PM | (HCC) | procedure are in the | | | | PDT | | results section. | + +--------+ + + + | IRON AND TIBC, SERUM | Routin | 11/15/2018 | Morbid obesity | Results for this | | | e | 1:51 PM | (HCC) | procedure are in the | | | | PDT | | results section. | + +--------+ + + + documented in this encounter Results CBC (HEMOGRAM) ONLY (11/15/2018 1:51 PM PDT) + +-------+ + + + | Component | Value | Ref Range | Performed | Pathologist | | | | | At | Signature | + +-------+ + + + | WHITE CELL | 4.63 | 3.50 - 10.80 | [facility] | | | COUNT | | K/cu mm | LABORATORY | | | | | | SERVICES, | | | | | | CORE | | + +-------+ + + + | RED CELL | 4.72 | 4.00 - 5.20 | [facility] | | | COUNT | | M/cu mm | LABORATORY | | | | | | SERVICES, | | | | | | CORE | | + +-------+ + + + | HEMOGLOBIN | 14.2 | 12.0 - 16.0 | [facility] | | | | | g/dL | LABORATORY | | | | | | SERVICES, | | | | | | CORE | | + +-------+ + + + | HEMATOCRIT | 41.7 | 36.0 - 46.0 % | [facility] | | | | | | LABORATORY | | | | | | SERVICES, | | | | | | CORE | | + +-------+ + + + | MCV | 88.3 | 80.0 - 100.0 fL | [facility] | | | | | | LABORATORY | | | | | | SERVICES, | | | | | | CORE | | + +-------+ + + + | MCHC | 34.1 | 32.0 - 36.0 | [facility] | | | | | g/dL | LABORATORY | | | | | | SERVICES, | | | | | | CORE | | + +-------+ + + + | RDW SD | 43.6 | 35.1 - 46.3 fL | [facility] | | | | | | LABORATORY | | | | | | SERVICES, | | | | | | CORE | | + +-------+ + + + | PLATELET | 211 | 150 - 400 K/cu | [facility] | | | COUNT | | mm | LABORATORY | | | | | | SERVICES, | | | | | | CORE | | + +-------+ + + + | MPV | 10.4 | 9.7 - 12.3 fL | [facility] | | | | | | LABORATORY | | | | | | SERVICES, | | | | | | CORE | | + +-------+ + + + | NRBC% | 0.0 | 0.0 - 0.3 % | [facility] | | | | | | LABORATORY | | | | | | SERVICES, | | | | | | CORE | | + +-------+ + + + | NRBC# | 0.00 | 0.00 - 0.02 | [facility] | | | | | K/cu mm | LABORATORY | | | | | | SERVICES, | | | | | | CORE | | + +-------+ + + + + + | Specimen | + + | Blood - Blood | | (substance) | + + + + + + + | Performing | Address | City/State/Zipcode | Phone Number | | Organization | | | | + + + + + | [facility] | [address] | [place] [address] | | | SERVICES, CORE | [address] | | | + + + + + VITAMIN D, 25-HYDROXY, SERUM (11/15/2018 1:51 PM PDT) + + + + + + | Component | Value | Ref Range | Performed | Pathologist | | | | | At | Signature | + + + + + + | VITAMIN D | 19.8 (L) | 30 - 80 ng/mL | [facility] | | | 25 HYDROXY | | | LABORATORY | | | | | | SERVICES, | | | | | | CORE | | + + + + + + + + | Specimen | + + | Blood - Blood | | (substance) | + + + + + | Narrative | Performed At | + + + | Reference Interval: 0-18years: Deficiency: <20 ng/mL | [facility] | | Optimum level: >or=20 ng/mL | LABORATORY | | >18years: Deficiency: <20 ng/mL | SERVICES, CORE | | Insufficiency: 20-29 ng/mL | | | Optimum Level: 30-80 ng/mL High: | | | 81-150 ng/ml Toxic: >150 ng/mL | | + + + + + + + + | Performing | Address | City/State/Zipcode | Phone Number | | Organization | | | | + + + + + | [facility] | [address] | [place] [address] | | | SERVICES, CORE | [address] | | | + + + + + VITAMIN B-12 11/15/2018 1:51 PM PDT) + +-------+ + + + | Component | Value | Ref Range | Performed | Pathologist | | | | | At | Signature | + +-------+ + + + | VITAMIN B12 | 398 | 193 - 986 pg/mL | [facility] | | | | | | LABORATORY | | | | | | SERVICES, | | | | | | CORE | | + +-------+ + + + + + | Specimen | + + | Blood - Blood | | (substance) | + + + + + + + | Performing | Address | City/State/Zipcode | Phone Number | | Organization | | | | + + + + + | [facility] | [address] | [place] [address] | | | SERVICES, CORE | [address] | | | + + + + + VITAMIN B1, WHOLE BLOOD (11/15/2018 1:51 PM PDT) + + + + + + | Component | Value | Ref Range | Performed | Pathologist | | | | | At | Signature | + + + + + + | VITAMIN B1, | 114Comment: INTERPRETIVE | 70 - 180 nmol/L | [facility] | | | WHOLE | INFORMATION: Vitamin | | REG UNIV | | | BLOOD | B1, Whole Blood This | | PTH - [facility] | | | | assay measures the | | | | | | concentration of | | | | | | thiamine diphosphate | | | | | | (TDP), the primary | | | | | | active form of vitamin | | | | | | B1. Approximately 90 | | | | | | percent of vitamin B1 | | | | | | present in whole blood | | | | | | is TDP. Thiamine and | | | | | | thiamine monophosphate, | | | | | | which comprise the | | | | | | remaining 10 percent, | | | | | | are not measured. Test | | | | | | developed and | | | | | | characteristics | | | | | | determined by [facility] | | | | | | Laboratories. See | | | | | | Compliance Statement B: | | | | | | [employer]/CSPerformed | | | | | | by [email or web address],[address] | | | | | | [address], [facility],[place] | | | | | | [address] | | | | | | [phone].[employer]. | | | | | | [facility] center[facility]andler MD, | | | | | | Lab. Director | | | | + + + + + + + + | Specimen | + + | Blood - Blood | | (substance) | + + + + + + + | Performing | Address | City/State/Zipcode | Phone Number | | Organization | | | | + + + + + | [facility] | [address] | [place], [place] | | | UNIV PTH - [facility] | | [address] | | + + + + + PTH, SERUM (11/15/2018 1:51 PM PDT) + +-------+ + + + | Component | Value | Ref Range | Performed | Pathologist | | | | | At | Signature | + +-------+ + + + | PTH, SERUM | 67 | 18 - 88 pg/mL | [facility] | | | | | | LABORATORY | | | | | | SERVICES, | | | | | | CORE | | + +-------+ + + + + + | Specimen | + + | Blood - Blood | | (substance) | + + + + + + + | Performing | Address | City/State/Zipcode | Phone Number | | Organization | | | | + + + + + | [facility] | [address] | [place] [address] | | | SERVICES, CORE | [address] | | | + + + + + METHYLMALONIC ACID, SERUM (11/15/2018 1:51 PM PDT) + + + + + + | Component | Value | Ref Range | Performed | Pathologist | | | | | At | Signature | + + + + + + | METHYLMALON | 0.15Comment: | 0.00 - 0.40 | [facility] | | | IC ACID | INTERPRETIVE | umol/L | REG UNIV | | | | INFORMATION: MMA | | PTH - [facility] | | | | Serum/Plasma, | | | | | | | | | | | | Vitamin B12 Status | | | | | | Test developed and | | | | | | characteristics | | | | | | determined by [facility] [facility] | | | | | | Laboratories. See | | | | | | Compliance Statement B: | | | | | | [employer]/CSPerformed | | | | | | by [email or web address],[address] | | | | | | [address], [facility],[place] | | | | | | [address] | | | | | | [phone].[employer]. | | | | | | [facility] centerChandler MD, | | | | | | Lab. Director | | | | + + + + + + + + | Specimen | + + | Blood - Blood | | (substance) | + + + + + + + | Performing | Address | City/State/Zipcode | Phone Number | | Organization | | | | + + + + + | [facility] | [address] [facility] | [place], [place] | | | UNIV PTH - [facility] | | [address] | | + + + + + LIPID SET (TRIG, T CHOL, HDL, CALC LDL) (11/15/2018 1:51 PM PDT) + +---------+ + + + | Component | Value | Ref Range | Performed | Pathologist | | | | | At | Signature | + +---------+ + + + | CHOLESTEROL | 139 | <200 mg/dL | [facility] | | | (LAB) | | | LABORATORY | | | | | | SERVICES, | | | | | | CORE | | + +---------+ + + + | TRIGLYCERID | 117 | <150 mg/dL | [facility] | | | ES | | | LABORATORY | | | | | | SERVICES, | | | | | | CORE | | + +---------+ + + + | HDL | 33 (L) | >40 mg/dL | [facility] | | | CHOLESTEROL | | | LABORATORY | | | | | | SERVICES, | | | | | | CORE | | + +---------+ + + + | HDL CMNT | No Hemo | | [facility] | | | | | | LABORATORY | | | | | | SERVICES, | | | | | | CORE | | + +---------+ + + + | LDL | 83 | <100 mg/dL | [facility] | | | CHOLESTEROL | | | LABORATORY | | | , | | | SERVICES, | | | CALCULATED | | | CORE | | + +---------+ + + + | VLDL | 23 | <31 mg/dL | [facility] | | | CHOLESTEROL | | | LABORATORY | | | , | | | SERVICES, | | | CALCULATED | | | CORE | | + +---------+ + + + | NON-HDL | 106 | <130 mg/dL | [facility] | | | CHOLESTEROL | | | LABORATORY | | | | | | SERVICES, | | | | | | CORE | | + +---------+ + + + + + | Specimen | + + | Blood - Blood | | (substance) | + + + + + | Narrative | Performed At | + + + | Cholesterol Reference Range: Desirable: <200 mg/dL | [facility] | | Borderline High: 200 - 239 mg/dL | LABORATORY | | High: >=240 mg/dL LDL Cholesterol Reference | SERVICES, CORE | | Range: Optimal: <100 mg/dL Near | | | Optimal: 100-129 mg/dL Borderline High: 130-159 mg/dL | | | High: 160-189 mg/dL Very High: | | | >=190 mg/dL non-HDL Cholesterol Reference Range: | | | Optimal: <130 mg/dL Near Optimal: 130-159 | | | mg/dL Borderline High: 160-189 mg/dL | | | High: 190-209 mg/dL Very High: >=210 mg/dL | | | Triglyceride Reference Range: Normal: <150 mg/dL | | | Borderline High: 150-199 mg/dL High: 200-499 | | | mg/dL Very High: >=500 mg/dL HDL Reference Range: | | | High Risk: <40 mg/dL Desirable: >=60 mg/dL | | + + + + + + + + | Performing | Address | City/State/Zipcode | Phone Number | | Organization | | | | + + + + + | [facility] | [address] | [place] [address] | | | SERVICES, CORE | [address] | | | + + + + + IRON AND TIBC (11/15/2018 1:51 PM PDT) + +--------+ + + + | Component | Value | Ref Range | Performed | Pathologist | | | | | At | Signature | + +--------+ + + + | IRON | 71 | 30 - 160 ug/dL | [facility] | | | | | | LABORATORY | | | | | | SERVICES, | | | | | | CORE | | + +--------+ + + + | IRON BIND | 396 | 240 - 450 ug/dL | [facility] | | | CAP | | | LABORATORY | | | | | | SERVICES, | | | | | | CORE | | + +--------+ + + + | % | 18 (L) | 20 - 50 % | [facility] | | | SATURATION | | | LABORATORY | | | TRANSFERRIN | | | SERVICES, | | | , | | | CORE | | + +--------+ + + + + + | Specimen | + + | Blood - Blood | | (substance) | + + + + + + + | Performing | Address | City/State/Zipcode | Phone Number | | Organization | | | | + + + + + | [facility] | [address] | [place] [address] | | | SERVICES, CORE | [address] | | | + + + + + HOMOCYSTEINE TOTAL, PLASMA (11/15/2018 1:51 PM PDT) + +-------+ + + + | Component | Value | Ref Range | Performed | Pathologist | | | | | At | Signature | + +-------+ + + + | HOMOCYSTEIN | 7.4 | 3.5 - 10.4 | [facility] | | | E,PLASMA,TO | | umol/L | LABORATORY | | | BETTY | | | SERVICES, | | | | | | SPECIAL IMM | | | | | | + COAG | | + +-------+ + + + + + | Specimen | + + | Blood - Blood | | (substance) | + + + + + + + | Performing | Address | City/State/Zipcode | Phone Number | | Organization | | | | + + + + + | [facility] | [address] | [place] [address] | | | SERVICES, SPECIAL | [address] | | | | IMM + COAG | | | | + + + + + HEMOGLOBIN A1C, BLOOD (11/15/2018 1:51 PM PDT) + + + + + + | Component | Value | Ref Range | Performed | Pathologist | | | | | At | Signature | + + + + + + | HEMOGLOBIN | 4.6Comment: Hgb A1C | <5.7 % | [facility] | | | A1C | Interpretive | | LABORATORY | | | | Information: | | SERVICES, | | | | <5.7% - Normal | | SPECIAL IMM | | | | 5.7-6.4% - Consistent | | + COAG | | | | with pre-diabetes | | | | | | >6.4% - Consistent | | | | | | with diabetes | | | | | | | | | | + + + + + + | ESTIMATED | 85Comment: The | mg/dL | [facility] | | | AVERAGE | estimated Average | | LABORATORY | | | GLUCOSE | Glucose (eAG) number is | | SERVICES, | | | | calculated from the | | SPECIAL IMM | | | | result of the A1c test. | | + COAG | | | | The eAG shows what the | | | | | | average blood glucose | | | | | | was over the previous 2 | | | | | | to 3 months. | | | | + + + + + + + + | Specimen | + + | Blood - Blood | | (substance) | + + + + + | Narrative | Performed At | + + + | Alternate forms of testing such as fructosamine should be | [facility] | | considered for monitoring termite treater glycemic control in patients with: | LABORATORY | | Increased red cell turnover, certain hemoglobinopathies (e.g., HbS, | SERVICES, | | HbE, HbC and thalassemia syndromes), anemias, blood loss, chronic | SPECIAL IMM + | | liver disease and hemochromatosis (artefactually low HbA1c); iron | [facility]AG | | deficiency anemia (artefactually high HbA1c due to enhanced glycation | | | of hemoglobin). | | + + + + + + + + | Performing | Address | City/State/Zipcode | Phone Number | | Organization | | | | + + + + + | [facility] | [address] | [place] [address] | | | SERVICES, SPECIAL | [address] | | | | IMM + COAG | | | | + + + + + FERRITIN (11/15/2018 1:51 PM PDT) + + + + + + | Component | Value | Ref Range | Performed | Pathologist | | | | | At | Signature | + + + + + + | FERRITIN | 39 (L)Comment: Male and | 50 - 200 ng/mL | [facility] | | | | Female >18 years: | | LABORATORY | | | | <20 ng/mL: | | SERVICES, | | | | Consistant with iron | | CORE | | | | deficiency 21-50 | | | | | | ng/mL: Possible | | | | | | iron deficiency 51-99 | | | | | | ng/mL: Iron | | | | | | deficiency unlikely | | | | | | unless inflammation | | | | | | present or | | | | | | patient | | | | | | >65 years of age | | | | | | 100-200 ng/mL: | | | | | | Normal, not consistent | | | | | | with iron deficiency | | | | | | >200 ng/mL: If | | | | | | transferrin saturation | | | | | | >45%, consider | | | | | | hemochromatosis | | | | + + + + + + + + | Specimen | + + | Blood - Blood | | (substance) | + + + + + + + | Performing | Address | City/State/Zipcode | Phone Number | | Organization | | | | + + + + + | [facility] | [address] | [place] [address] | | | SERVICES, CORE | [address] | | | + + + + + COMPLETE METABOLIC SET (NA,K,CL,CO2,BUN,CREAT,GLUC,CA,AST,ALT,BILI TOTAL,ALK PHOS,ALB,PROT TOTAL) (11/15/2018 1:51 PM PDT) + +---------+ + + + | Component | Value | Ref Range | Performed | Pathologist | | | | | At | Signature | + +---------+ + + + | GLUCOSE, | 83 | 70 - 99 mg/dL | [facility] | | | PLASMA | | | LABORATORY | | | (LAB) | | | SERVICES, | | | | | | CORE | | + +---------+ + + + | BUN, PLASMA | 9 | 6 - 20 mg/dL | [facility] | | | (LAB) | | | LABORATORY | | | | | | SERVICES, | | | | | | CORE | | + +---------+ + + + | CREATININE | 0.70 | 0.60 - 1.10 | [facility] | | | PLASMA | | mg/dL | LABORATORY | | | (LAB) | | | SERVICES, | | | | | | CORE | | + +---------+ + + + | EGFR | >60 | >60 mL/min | [facility] | | | - | | | LABORATORY | | | CYMRAES | | | SERVICES, | | | | | | CORE | | + +---------+ + + + | EGFR NON | >60 | >60 mL/min | [facility] | | | -PEDRO | | | LABORATORY | | | RICAN | | | SERVICES, | | | | | | CORE | | + +---------+ + + + | SODIUM, | 139 | 136 - 145 | [facility] | | | PLASMA | | mmol/L | LABORATORY | | | (LAB) | | | SERVICES, | | | | | | CORE | | + +---------+ + + + | POTASSIUM, | 3.7 | 3.4 - 5.0 | [facility] | | | PLASMA | | mmol/L | LABORATORY | | | (LAB) | | | SERVICES, | | | | | | CORE | | + +---------+ + + + | CHLORIDE, | 107 | 97 - 108 mmol/L | [facility] | | | PLASMA | | | LABORATORY | | | (LAB) | | | SERVICES, | | | | | | CORE | | + +---------+ + + + | TOTAL CO2, | 26 | 21 - 32 mmol/L | [facility] | | | PLASMA | | | LABORATORY | | | (LAB) | | | SERVICES, | | | | | | CORE | | + +---------+ + + + | CALCIUM, | 9.2 | 8.6 - 10.2 | [facility] | | | PLASMA | | mg/dL | LABORATORY | | | (LAB) | | | SERVICES, | | | | | | CORE | | + +---------+ + + + | CALCIUM(ALB | 9.1 | 8.6 - 10.2 | [facility] | | | CORRECTED) | | mg/dL | LABORATORY | | | | | | SERVICES, | | | | | | CORE | | + +---------+ + + + | BILIRUBIN | 0.3 | 0.3 - 1.2 mg/dL | [facility] | | | TOTAL | | | LABORATORY | | | | | | SERVICES, | | | | | | CORE | | + +---------+ + + + | TOTAL | 8.4 (H) | 6.4 - 8.2 g/dL | [facility] | | | PROTEIN, | | | LABORATORY | | | PLASMA | | | SERVICES, | | | (LAB) | | | CORE | | + +---------+ + + + | ALBUMIN, | 4.1 | 3.5 - 4.7 g/dL | [facility] | | | PLASMA | | | LABORATORY | | | (LAB) | | | SERVICES, | | | | | | CORE | | + +---------+ + + + | ALK PHOS | 83 | 42 - 98 U/L | [facility] | | | | | | LABORATORY | | | | | | SERVICES, | | | | | | CORE | | + +---------+ + + + | AST(SGOT) | 35 | <=41 U/L | [facility] | | | | | | LABORATORY | | | | | | SERVICES, | | | | | | CORE | | + +---------+ + + + | ALT (SGPT) | 61 (H) | <=60 U/L | [facility] | | | | | | LABORATORY | | | | | | SERVICES, | | | | | | CORE | | + +---------+ + + + | ANION GAP | 6 | 4 - 11 mmol/L | [facility] | | | | | | LABORATORY | | | | | | SERVICES, | | | | | | CORE | | + +---------+ + + + | ANION | 5 | 4 - 11 mmol/L | [facility] | | | GAP(ALB | | | LABORATORY | | | CORRECTED) | | | SERVICES, | | | | | | CORE | | + +---------+ + + + | POTASSIUM | No Hemo | | [facility] | | | CMNT | | | LABORATORY | | | | | | SERVICES, | | | | | | CORE | | + +---------+ + + + | BILI T CMNT | No Hemo | | [facility] | | | | | | LABORATORY | | | | | | SERVICES, | | | | | | CORE | | + +---------+ + + + | AST CMNT | No Hemo | | [facility] | | | | | | LABORATORY | | | | | | SERVICES, | | | | | | CORE | | + +---------+ + + + + + | Specimen | + + | Blood - Blood | | (substance) | + + + + + | Narrative | Performed At | + + + | GFR is estimated using the MDRD equation recommended by the National | [facility] | | Kidney Disease Education Program. Estimated GFR Interpretive | LABORATORY | | Information: <60 mL/min/1.73 sq m Chronic Kidney | SERVICES, CORE | | Disease <15 mL/min/1.73 sq m Kidney Failure | | | Estimated GFR greater than 60 mL/min/1.73 sq m is of limited clinical | | | value. The MDRD equation is not valid in the following situations: - | | | Patients under 18 years of age - Severe malnutrition or obesity - | | | Vegetarian diet - Rapidly changing kidney function - Amputees, | | | paraplegics, or other muscle-wasting diseases | | + + + + + + + + | Performing | Address | City/State/Zipcode | Phone Number | | Organization | | | | + + + + + | [facility] | [address] | [place] [address] | | | SERVICES, CORE | [address] | | | + + + + + documented in this encounter Visit Diagnoses + + | Diagnosis | + + | Morbid obesity (HCC) - Primary Morbid obesity | + + documented in this encounter
--- OUTSIDE RECORDS SUMMARY | ~2019-03-13 | XMS | Encounter Summary ---
Demographics + + + | Address | [address] | | | [place] [address] | + + + | Home Phone | | + + + | Preferred Language | Unknown | + + + | Marital Status | Unmarried Domestic Partner | + + + | Shinto Affiliation | Unknown | + + + | Race | White | + + + | Ethnic Group | Not or | + + + Author + + + | Author | [facility] | + + + | Organization | [facility] | + + + | Address | Unknown | + + + | Phone | Unavailable | + + + Support + + +---------+ + | Name | Relationship | Address | Phone | + + +---------+ + | Alen Perez | ECON | Unknown | | + + +---------+ + Care Team Providers + +------+ + | Care Rod And Tube Straightener Name | Role | Phone | + +------+ + | Harpreet Hector MD | PCP | | + +------+ + Reason for Visit + + + | Reason | Comments | + + + | Medical Records | | | Review | | + + + Encounter Details +--------+ + + + + | Date | Type | Department | Care Team | Description | +--------+ + + + + | 11/26/ | Abstract | Digestive Health | Clinic, Surgery | Medical Records | | 2019 | | Center at [facility] [address] | | Review | | | | [address] | | | | | | Mailcode: [place] | | | | | | for Health and | | | | | | Healing, [address] | | | | | | [place], [place] | | | | | | [address] | | | | | | [phone] | | | +--------+ + + + [...] | | | | | [address] [place], | | | | | | [place] [address] | | +--------+---------+ + + + | 06/12/ | Office | Pain Management | Javon Gallego, | | | 2019 | Visit | | PhD [address] | | | | | | [place], [place] | | | | | | [address] | | | | | | [phone] | | | | | | | | +--------+---------+ + + + | 07/06/ | Office | Surgery | | | | 2019 | Visit | | | | +--------+---------+ + + + documented as of this encounter Visit Diagnoses Not on filedocumented in this encounter"
--- OUTSIDE RECORDS SUMMARY | ~2019-03-13 | XMS | Encounter Summary ---
Demographics + + + | Address | [address] | | | [place] [address] | + + + | Home Phone | | + + + | Preferred Language | Unknown | + + + | Marital Status | Unmarried Domestic Partner | + + + | Confucianist Affiliation | Unknown | + + + | Race | White | + + + | Ethnic Group | Not or | + + + Author + + + | Author | [facility] | + + + | Organization | [facility] | + + + | Address | Unknown | + + + | Phone | Unavailable | + + + Support + + +---------+ + | Name | Relationship | Address | Phone | + + +---------+ + | Alen Perez | ECON | Unknown | | + + +---------+ + Care Team Providers + +------+ + | Care Datapower Developer Name | Role | Phone | + [...] + + | 01/06/ | Abstract | Digestive Health | Clinic, Surgery | Medical Records | | 2019 | | Center at [facility] [address] | | Review | | | | [address] | | | | | | Mailcode: [place] | | | | | | for Health and | | | | | | [facility], [address] | | | | | | [place], [place] | | | | | | [address] | | | | | | [phone] | | | +--------+ + + + [...] | | | | | [address] [place], | | | | | | [place] [address] | | +--------+---------+ + + + | 06/12/ | Office | Pain Management | Javon Gallego, | | | 2019 | Visit | | PhD [address] | | | | | | [place], [place] | | | | | | [address] | | | | | | [phone] | | | | | | | | +--------+---------+ + + + | 07/06/ | Office | Surgery | | | | 2019 | Visit | | | | +--------+---------+ + + + documented as of this encounter Visit Diagnoses Not on filedocumented in this encounter"
--- OUTSIDE RECORDS SUMMARY | ~2019-03-13 | XMS | Clinical Summary ---
Demographics + + + | Address | [address] | | | [place] [address] | + + + | Home Phone | | + + + | Preferred Language | Unknown | + + + | Marital Status | Unmarried Domestic Partner | + + + | Latter-Day Affiliation | Unknown | + + + [...] Team Providers + +------+ + | Care Control Operator Flow Coat Name | Role | Phone | + +------+ + | Harpreet Hector MD | PCP | | + +------+ + Source Comments [facility] is fully live on both [facility] Ambulatory and [facility] InPatient.[facility] Allergies No Known Allergies Medications + + [...] | | | | | [address] [place], | | | | | | [place] [address] | | +--------+---------+ + + + | 06/12/ | Office | Pain Management | Javon Gallego, | | | 2019 | Visit | | PhD [address] | | | | | | [place], [place] | | | | | | [address] | | | | | | [phone] | | | | | | | [...] | | | + +--------+ +--------+-------+---------+--------+ | NIGHT CLEANER MEDICAID | NIGHT CLEANER | xxxxxxxx | | | | Medica [...] 1986 | [phone] | [place] [address] | | | ashley | | | 4 (Home) | | + +--------+ +--------+ + +
--- OUTSIDE RECORDS SUMMARY | ~2019-03-13 | XMS | Encounter Summary ---
Demographics + + + | Address | [address] | | | [place] [address] | + + + | Home Phone | | + + + | Preferred Language | Unknown | + + + | Marital Status | Unmarried Domestic Partner | + + + | Pentecostal Affiliation | Unknown | + + + | Race | White | + + + | Ethnic Group | Not or | + + + Author + + + | Author | [facility] | + + + | Organization | [facility] | + + + | Address | Unknown | + + + | Phone | Unavailable | + + + Support + + +---------+ + | Name | Relationship | Address | Phone | + + +---------+ + | Alen Perez | ECON | Unknown | | + + +---------+ + Care Team Providers + +------+ + | Care Bun Machine Operator Name | Role | Phone | + +------+ + | Harpreet Hector MD | PCP | | + +------+ + Encounter Details +--------+ + + + + | Date | Type | Department | Care Team | Description | +--------+ + + + + | 08/20/ | Abstract | [facility] | Clinic, Surgery | | | 2019 | | [place] [facility] [address] | | | | | | [address] | | | | | | Mailcode: [place] | | | | | | [facility] | | [facility] | [facility], [address] | | | | | | [place], [place] | | | | | | [address] | | | | | | [phone] | | | +--------+ + + + [...] | | | | | [place], | | | | | | [place] [address] | | +--------+---------+ + + + | 06/12/ | Office | Pain Management | Javon Gallego, | | | 2019 | Visit | | PhD [address] | | | | | | [place], [place] | | | | | | [address] | | | | | | [phone] | | | | | | | | +--------+---------+ + + + | 07/06/ | Office | Surgery | | | | 2019 | Visit | | | | +--------+---------+ + + + documented as of this encounter Visit Diagnoses Not on filedocumented in this encounter"
--- OUTSIDE RECORDS SUMMARY | ~2019-03-13 | XMS | Encounter Summary ---
Demographics + + + | Address | [address] | | | [place] [address] | + + + | Home Phone | | + + + | Preferred Language | Unknown | + + + | Marital Status | Unmarried Domestic Partner | + + + | Lutheran Affiliation | Unknown | + + + | Race | White | + + + | Ethnic Group | Not or | + + + Author + + + | Author | [facility] | + + + | Organization | [facility] | + + + | Address | Unknown | + + + | Phone | Unavailable | + + + Support + + +---------+ + | Name | Relationship | Address | Phone | + + +---------+ + | Alen Perez | ECON | Unknown | | + + +---------+ + Care Team Providers + +------+ + | Care Americanization Teacher Name | Role | Phone | + +------+ + | Harpreet Hector MD | PCP | | + +------+ + Reason for Visit + + + | Reason | Comments | + + + | Bariatric Nutrition | | + + + Consultation (Routine) + +--------+ + + + + | Status | Reason | Specialty | Diagnoses / | Referred By | Referred To | | | | | Procedures | Contact | Contact | + +--------+ + + + + | Pending | | Nutrition | | Non-[facility] | Fn | | Review | | | | Epic Dept | [facility] | | | | | | | [facility] | | | | | | | [address] | | | | | | | Mailcode: | | | | | | | [facility] for | | | | | | | Health and | | | | | | | Healing, | | | | | | | Building [address] | | | | | | | [place], [place] | | | | | | | [address] | | | | | | | Phone: | | | | | | | [phone] | | | | | | | Fax: | | | | | | | [phone] | + +--------+ + + + + Encounter Details +--------+---------+ + + + | Date | Type | Department | Care Team | Description | +--------+---------+ + + + | 11/15/ | Office | Digestive Health | Lexy Villalta, RD | Morbid obesity (HCC) | | 2019 | Visit | Center at [facility] [address] | [address] | (Primary Dx) | | | | [address] | [place], | | | | | Mailcode: [place] | [place] [address] | | | | | for Health and | | | | | | [facility] 2 | | | | | | [place], [place] | | | | | | [address] | | | | | | [phone] | | | +--------+---------+ + + + [...] Blood Pressure | - | - | | + + + + + | Pulse | - | - | | + + + + + | Temperature | - | - | | + + + + + | Respiratory Rate | - | - | | + + + + + | Oxygen Saturation | - | - | | + + + + + | Inhaled Oxygen | - | - | | | Concentration | | | | + + + + + | Weight | 128.2 kg (282 lb 9.6 | 11/15/2018 11:25 AM | | | | oz) | PDT | | + + + + + | Height | 160 cm (5' 3") | 11/15/2018 11:25 AM | | | | | PDT | | + + + + + | Body Mass Index | 50.06 | 11/15/2018 11:25 AM | | | | | PDT | | + + + + + documented in this encounter Progress Notes Lexy Villalta, ADRIANNA - 11/15/2018 11:30 AM PDT Referring Provider: Harpreet Hector MD [facility], Pre-Bariatric Surgery Evaluation Initial diet consultation prior to having Sleeve Gastrectomy. Documented Time of Visit: 10:25 until 12:15 (50 minutes [id number] with patient) SUBJECTIVE: Pt comes in alone. , 2 kids 11 and 2. Patient viewed online seminar prior to visit. What have you been doing to prepare for surgery: (research). Just started using BiPap Questions/Information desired today: nothing specific Goals & reasons why patient wants to have bariatric surgery: More fun activities with the f amily, hiking, ride rides at [employer] Food Allergies: No Food Intolerances: No Lactose Intolerance: No Emotional Eating: If stressed or trying to keep herself awake at work. Recent weight changes: No Previous weight loss attempts: (Keto/Supplements/GDM diet) Are you able exercise? Limited Current Physical Exercise: Some walking. Food recall: Awakes at: starts at 4:30 off work at midnight sleeps 1am to 7 am. Days off [employer]. 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 Coffee with Coffeemate - 2cups (16oz total) Bkfst:sometimes (5 days/week) - toast with avocado or waffles with syrup and butter. Lunch: Kidder or PBJ or chicken nuggets Dinner: low sodium, calorie count menu at care home - meatloaf + veggie + fruit. At home c hicken, veggies, smoked ribs - lots of meat. She is trying to cut back on pasta. Snacks: trail mix Eating out: when in a hurry or having appointment - fast food. Beverages: Water - at least 40oz, frappe on way to work, sweet tea in the summer when it is hot. Does not like soda - too sugary. OBJECTIVE: Height: Ht Readings from Last 1 Encounters: 11/15/18 1.6 m (5' 3") Weight: Wt Readings from Last 1 Encounters: 11/15/18 128.2 kg (282 lb 9.6 oz) BMI: Body mass index is 50.06 kg/m. Past Medical History: Past Medical History: Diagnosis Date GERD (gastroesophageal reflux disease) Headache Hypertension Irregular periods Leaking of urine SOB (shortness of breath) Medications: See list in Epic snap shot GDM with last Dietary Supplements: none Labs: see Results Review for current labs (if available) Nutrition Diagnosis: Obesity as evidenced by BMI of Body mass index is 50.06 kg/m.. Factors contributing to obesity: Emotional eating Lifestyle issues Lack of a regular physical activity program Food choices Metabolic Pre-Surgery Diet: Provided written and verbal diet and behavior suggestions to help patient prepare for surge ry. -Eat within one hour of waking, then every 3-4 waking hours -Include protein with all meals & snacks -Use GridAnts plate model. -Begin keeping daily food logs -Choose foods & beverages with < 14 g sugar & < 10 g fat per serving -Eliminate liquid calories and carbonation; limit caffeine to 16 oz/day -Begin fluids from meals. Nothing during and for 30 minutes after. -Sip fluids throughout the day, aim for 64 oz/day (non-caloric, non-caffeinated, non-carbo nated) -Begin practicing mindful eating Explore exercise program options Education provided: Provided and reviewed an instructional handout (bariatric surgery notebook) with the patien t on: behavior modifications, food items, post-surgery diet progression, sample menus and vi tamin and mineral supplements needed after surgery. Information provided in writing, and use d visual aids to demonstrate food portions post-surgery and size of stomach after surgery. Patient's Comprehension: The patient is: Receptive Stage of change: Preparation Barrier(s) to education: No Learning style: Patient is a Visual learner/Verbal learner Expected Outcome: I think the patient will do moderately if following all lifestyle and be havioral changes discussed today. Patient verbalizes understanding that surgery is a tool to help achieve and maintain weight loss but that surgery will not eliminate the problems that led to weight gain. Yes GOAL: The patient's goal is to have weight loss surgery to maintain weight loss and improve other health conditions. 1. Continue to practice behavioral changes to prepare for surgery. 2. Increase physical activity. 3. Review all information provided for post surgery diet progression in bariatric surger y notebook. Attend 2 pre-surgery classes. 4. Call or send Hot Dott message to dietitian with any questions. Contact information was provided. Follow up with dietitian 1-2 weeks after surgery at first post-op visit. Lexy Villalta RD, CNSC, LD [facility] Bariatrics [phone] documented in this enco unter Plan of Treatment +--------+---------+ + + + | Date | Type | Specialty | Care Team | Description | +--------+---------+ + + + | 06/12/ | Office | Nutrition | Lexy Villalta RD | | | 2019 | Visit | | [address] | | | | | | [place] [facility] | | | | | | [place] [address] | | +--------+---------+ + + + | 06/12/ | Office | Pain Management | Javon Gallego, | | | 2019 | Visit | | PhD [address] | | | | | | [place], [place] | | | | | | [address] | | | | | | [phone] | | | | | | | [...] | + +--------+ + + + | [place] MNT INITIAL | Routin | 11/15/2018 | Morbid obesity | | | ASSESSMNT X15MIN | e | 12:24 PM | (HCC) | | | | | PDT | | | + +--------+ + + + documented in this encounter Visit Diagnoses + + | Diagnosis | + + | Morbid obesity (HCC) - Primary Morbid obesity | + + documented in this encounter
--- OUTSIDE RECORDS SUMMARY | ~2019-03-13 | XMS | Encounter Summary ---
Demographics + + + | Address | [address] | | | [place] [address] | + + + | Home Phone | | + + + | Preferred Language | Unknown | + + + | Marital Status | Unmarried Domestic Partner | + + + | Jewish Affiliation | Unknown | + + + | Race | White | + + + | Ethnic Group | Not or | + + + Author + + + | Author | [facility] | + + + | Organization | [facility] | + + + | Address | Unknown | + + + | Phone | Unavailable | + + + Support + + +---------+ + | Name | Relationship | Address | Phone | + + +---------+ + | Alen Perez | ECON | Unknown | | + + +---------+ + Care Team Providers + +------+ + | Care Cost Control Specialist Name | Role | Phone | + [...] | | | | | Procedures | [place], | [facility] | | | | | PHYSICAL | [place] | for Health | | | | | THERAPY | [address] | and Healing, | | | | | REFERRAL | Phone: | Building [address], | | | | | | | [address] Floor | | | | | | Fax: | [place], [place] | | | | | | [phone] | [address] | | | | | | | Phone: | | | | | | | [phone] | | | | | | | Fax: | | | | | | | [phone] | +--------+--------+ + + + + Encounter Details +--------+ + + + + | Date | Type | Department | Care Team | Description | +--------+ + + + + | 08/20/ | Portrait Photographer | Digestive Health | [place], | Morbid obesity (HCC) | | 2019 | | Center at [facility] [address] | AGACNP [address] | (Primary Dx) | | | | [address] | Ave [place], [place] | | | | | Mailcode: Center | [address] | | | | | for Health and | | | | | | Healing, [address] | | | | | | [place], [place] | | | | | | [address] | | | | | | [phone] | | | +--------+ + + + [...] | | | | | [place], | | | | | | [place] [address] | | +--------+---------+ + + + | 06/12/ | Office | Pain Management | Javon Gallego, | | | 2019 | Visit | | PhD [address] | | | | | | [place], [place] | | | | | | [address] | | | | | | [phone] | | | | | | | [...]
--- OUTSIDE RECORDS SUMMARY | ~2019-03-13 | XMS | Encounter Summary ---
Demographics + + + | Address | [address] | | | [place] [address] | + + + | Home Phone | | + + + | Preferred Language | Unknown | + + + | Marital Status | Unmarried Domestic Partner | + + + | Moravian Affiliation | Unknown | + + + | Race | White | + + + | Ethnic Group | Not or | + + + Author + + + | Author | [facility] | + + + | Organization | [facility] | + + + | Address | Unknown | + + + | Phone | Unavailable | + + + Support + + +---------+ + | Name | Relationship | Address | Phone | + + +---------+ + | Alen Perez | ECON | Unknown | | + + +---------+ + Care Team Providers + +------+ + | Care Pick Out Hand Name | Role | Phone | + +------+ + | Harpreet Hector MD | PCP | | + +------+ + Encounter Details +--------+ + + + + | Date | Type | Department | Care Team | Description | +--------+ + + + + | 03/12/ | MyChart | Digestive Health | | Bariatric homework | | 2020 | Encounter | Center at [facility] [address] | | list update | | | | [address] | | | | | | Mailcode: Center | | | | | | for Health and | | | | | | Healing, [address] | | | | | | [place], [place] | | | | | | [address] | | | | | | [phone] | | | +--------+ + + + [...] | | | | | | [place] [address] | | +--------+---------+ + + + | 06/12/ | Office | Pain Management | Javon Gallego, | | | 2019 | Visit | | PhD [address] | | | | | | [place] | | | | | | [address] | | | | | | [phone] | | | | | | | | +--------+---------+ + + + | 07/06/ | Office | Surgery | | | | 2019 | Visit | | | | +--------+---------+ + + + documented as of this encounter Visit Diagnoses Not on filedocumented in this encounter"
--- OUTSIDE RECORDS SUMMARY | ~2019-03-13 | XMS | Encounter Summary ---
Demographics + + + | Address | [address] | | | [place] [address] | + + + | Home Phone | | + + + | Preferred Language | Unknown | + + + | Marital Status | Unmarried Domestic Partner | + + + | Baptist Affiliation | Unknown | + + + | Race | White | + + + | Ethnic Group | Not or | + + + Author + + + | Author | [facility] | + + + | Organization | [facility] | + + + | Address | Unknown | + + + | Phone | Unavailable | + + + Support + + +---------+ + | Name | Relationship | Address | Phone | + + +---------+ + | Alen Perez | ECON | Unknown | | + + +---------+ + Care Team Providers + +------+ + | Care Infant Babysitter Name | Role | Phone | + +------+ + | Harpreet Hector MD | PCP | | + +------+ + Encounter Details +--------+ + + + + | Date | Type | Department | Care Team | Description | +--------+ + + + + | 08/20/ | Documentati | Digestive Health | Clinic, Surgery | | | 2019 | on | [place] at [facility] [address] | | | | | | [address] | | | | | | Mailcode: Center | | | | | | for Health and | | | | | | Healing, [address] | | | | | | [place], [place] | | | | | | [address] | | | | | | [phone] | | | +--------+ + + + [...] | | | | | [place], | | | | | | [place] [address] | | +--------+---------+ + + + | 06/12/ | Office | Pain Management | Javon Gallego, | | | 2019 | Visit | | [address] | | | | | | [place], [place] | | | | | | [address] | | | | | | [phone] | | | | | | | | +--------+---------+ + + + | 07/06/ | Office | Surgery | | | | 2019 | Visit | | | | +--------+---------+ + + + documented as of this encounter Visit Diagnoses Not on filedocumented in this encounter"
--- OUTSIDE RECORDS SUMMARY | ~2019-03-13 | XMS | Encounter Summary ---
Demographics + + + | Address | [address] | | | [place] [address] | + + + | Home Phone | | + + + | Preferred Language | Unknown | + + + | Marital Status | Unmarried Domestic Partner | + + + | Judaism Affiliation | Unknown | + + + | Race | White | + + + | Ethnic Group | Not or | + + + Author + + + | Author | [facility] | + + + | Organization | [facility] | + + + | Address | Unknown | + + + | Phone | Unavailable | + + + Support + + +---------+ + | Name | Relationship | Address | Phone | + + +---------+ + | Alen Perez | ECON | Unknown | | + + +---------+ + Care Team Providers + +------+ + | Care Technical Operator Name | Role | Phone | [...] | 2019 | on | Center at [facility] [address] | [address] | | | | | [address] | [place], | | | | | Mailcode: [place] | [place] [address] | | | | | for Health and | [phone] | | | | | [facility] [address] | | | | | | [place], [place] | | | | | | [address] | | | | | | [phone] | | | +--------+ + + + [...] | | | | | | [place] [address] | | +--------+---------+ + + + | 06/12/ | Office | Pain Management | Javon Gallego, | | | 2019 | Visit | | PhD [address] | | | | | | [place] | | | | | | [address] | | | | | | [phone] | | | | | | | | +--------+---------+ + + + | 07/06/ | Office | Surgery | | | | 2019 | Visit | | | | +--------+---------+ + + + documented as of this encounter Visit Diagnoses Not on filedocumented in this encounter"
--- OUTSIDE RECORDS SUMMARY | ~2019-03-13 | XMS | Encounter Summary ---
Demographics + + + | Address | [address] | | | [place] [address] | + + + | Home Phone [...] + | Author | [facility] | + + + | Organization | [facility] | + + + | Address | Unknown | + + + | Phone | Unavailable | + + + Support + + +---------+ + | Name | Relationship | Address | Phone | + + +---------+ + | Alen Perez | ECON | Unknown | | + + +---------+ + Care Team Providers + +------+ + | Care Clinical Data Manager Name | Role | Phone | + [...] | | | | | | | [place], [place] | | | | | | | [address] | | | | | | | Phone: | | | | | | | [phone] | | | | | | | Fax: | | | | | | | [phone] | + +--------+ + + + + Encounter Details +--------+---------+ + + + | Date | Type | Department | Care Team | Description | +--------+---------+ + + + | 11/15/ | Office | Digestive Health | Lexy Villalta, RD | Morbid obesity (HCC) | | 2019 | Visit | Center at [facility] [address] | [address] | (Primary Dx) | | | | [address] | [place], | | | | | Mailcode: [place] | [place] [address] | | | | | for Health and | | | | | | [facility], [facility] [address] | | | | | | [place], [place] | | | | | | [address] | | | | | | [phone] | | | +--------+---------+ + + + [...] of Visit: 10:25 until 12:15 (50 minutes tilh-pg-aqpm with patient) SUBJECTIVE: Pt comes in alone. , 2 kids 11 and 2. Patient viewed online seminar prior to visit. What have you been doing to prepare for surgery: (research). Just started using BiPap Questions/Information desired today: nothing specific Goals & reasons why patient wants to have bariatric surgery: More fun activities with the f amily, hiking, ride rides at [employer] Food Allergies: No Food Intolerances: No Lactose Intolerance: No Emotional Eating: If stressed or trying to keep herself awake at work. Recent weight changes: No Previous weight loss attempts: (Keto/Supplements/GDM diet) Are you able exercise? Limited Current Physical Exercise: Some walking. Food recall: Awakes at: starts at 4:30 off work at midnight sleeps 1am to 7 am. Days off [employer]. 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 Coffee with Coffeemate - 2cups (16oz total) Bkfst:sometimes (5 days/week) - toast with avocado or waffles with syrup and butter. Lunch: Cedar or PBJ or chicken nuggets Dinner: low sodium, calorie count menu at longterm - meatloaf + veggie + fruit. At [...] protein with all meals & snacks -Use [employer] plate model. -Begin keeping daily food logs [...] 2 pre-surgery classes. 4. Call or send JethroDatat message to dietitian with any questions. Contact information was provided. Follow up with dietitian 1-2 weeks after surgery at first post-op visit. Lexy Villalta RD, CNSC, LD [facility] Bariatrics [phone] documented in this enco unter Plan of Treatment +--------+---------+ + + + | Date | Type | Specialty | Care Team | Description | +--------+---------+ + + + | 06/12/ | Office | Nutrition | Lexy Villalta RD | | | 2019 | Visit | | [address] | | | | | | [place] [facility] | | | | | | [place] [address] | | +--------+---------+ + + + | 06/12/ | Office | Pain Management | Javon Gallego, | | | 2019 | Visit | | PhD [address] | | | | | | [place], [place] | | | | | | [address] | | | | | | [phone] | | | | | | | [...] | + +--------+ + + + | [place] MNT INITIAL | Routin | 11/15/2018 | [...]
--- OUTSIDE RECORDS SUMMARY | ~2019-03-13 | XMS | Encounter Summary ---
Demographics + + + | Address | [address] | | | [place] [address] | + + + | Home Phone [...] Author + + + | Author | [facility] | + + + | Organization | [facility] | + + + | Address | Unknown | + + + | Phone | Unavailable | + + + Support + + +---------+ + | Name | Relationship | Address | Phone | + + +---------+ + | Alen Perez | ECON | Unknown | | + + +---------+ + Care Team Providers + +------+ + | Care Cardiograph Operator Name | Role | Phone | + +------+ + | Harpreet Hector MD | PCP | | + +------+ + Encounter Details +--------+ + + + + | Date | Type | Department | Care Team | Description | +--------+ + + + + | 08/20/ | Documentati | Digestive Health | Clinic, Surgery | | | 2019 | on | [place] at [facility] [address] | | | | | | [address] | | | | | | Mailcode: Center | | | | | | for Health and | | | | | | Healing, [address] | | | | | | [place], [place] | | | | | | [address] | | | | | | [phone] | | | +--------+ + + + [...] | | | | | [place], | | | | | | [place] [address] | | +--------+---------+ + + + | 06/12/ | Office | Pain Management | Javon Gallego, | | | 2019 | Visit | | [address] | | | | | | [place], [place] | | | | | | [address] | | | | | | [phone] | | | | | | | | +--------+---------+ + + + | 07/06/ | Office | Surgery | | | | 2019 | Visit | | | | +--------+---------+ + + + documented as of this encounter Visit Diagnoses Not on filedocumented in this encounter"
--- OUTSIDE RECORDS SUMMARY | ~2019-03-13 | XMS | Encounter Summary ---
Demographics + + + | Address | [address] | | | [place] [address] | + + + | Home Phone | | + + + | Preferred Language | Unknown | + + + | Marital Status | Unmarried Domestic Partner | + + + | Mosque Affiliation | Unknown | + + + | Race | White | + + + | Ethnic Group | Not or | + + + Author + + + | Author | [facility] | + + + | Organization | [facility] | + + + | Address | Unknown | + + + | Phone | Unavailable | + + + Support + + +---------+ + | Name | Relationship | Address | Phone | + + +---------+ + | Alen Perez | ECON | Unknown | | + + +---------+ + Care Team Providers + +------+ + | Care Full Fashioned Garment Knitter Name | Role | Phone | + [...] | 2019 | Encounter | Center at [facility] [address] | [address] | | | | | [address] | [place], | | | | | Mailcode: Center | [place] [address] | | | | | for Health and | [phone] | | | | | [facility], [address] | | | | | | [place], [place] | | | | | | [address] | | | | | | [phone] | | | +--------+ + + + [...] | | | | | | [place] [address] | | +--------+---------+ + + + | 06/12/ | Office | Pain Management | Javon Gallego, | | | 2019 | Visit | | PhD [address] | | | | | | [place] | | | | | | [address] | | | | | | [phone] | | | | | | | | +--------+---------+ + + + | 07/06/ | Office | Surgery | | | | 2019 | Visit | | | | +--------+---------+ + + + documented as of this encounter Visit Diagnoses Not on filedocumented in this encounter"
--- OUTSIDE RECORDS SUMMARY | ~2019-03-13 | XMS | Encounter Summary ---
Demographics + + + | Address | [address] | | | [place] [address] | + + + | Home Phone [...] Author + + + | Author | Formerly [facility], [facility] [email or web address] [facility] | + + + | Organization | Formerly [facility], [facility] [facility] | + + + | Address | Unknown | + + + | Phone | Unavailable | + + + Support + + +---------+ + | Name | Relationship | Address | Phone | + + +---------+ + | Alen Perez | ECON | Unknown | | + + +---------+ + Care Team Providers + +------+ + | Care Booking Supervisor Name | Role | Phone | + +------+ + | Harpreet Hector MD | PCP | | + +------+ + Encounter Details +--------+ + + + + | Date | Type | Department | Care Team | Description | +--------+ + + + + | 11/19/ | Orders Only | Digestive Health | April Ptots ACNP | | | 2019 | | Center at [facility] [address] | [address] | | | | | [address] | [place], | | | | | Mailcode: [place] | [place] [address] | | | | | for Health and | [phone] | | | | | [facility], [facility] [address] | | | | | | [place], [place] | | | | | | [address] | | | | | | [phone] | | | +--------+ + + + [...] | | | | | | [place] [address] | | +--------+---------+ + + + | 06/12/ | Office | Pain Management | Javon Gallego, | | | 2019 | Visit | | PhD [address] | | | | | | [place] | | | | | | [address] | | | | | | [phone] | | | | | | | | +--------+---------+ + + + | 07/06/ | Office | Surgery | | | | 2019 | Visit | | | | +--------+---------+ + + + documented as of this encounter Visit Diagnoses Not on filedocumented in this encounter"
--- OUTSIDE RECORDS SUMMARY | ~2019-03-13 | XMS | Clinical Summary ---
Demographics + + + | Address | [address] | | | [place] [address] | + + + | Home Phone | | + + + | Preferred Language | Unknown | + + + | Marital Status | Unknown | + + + | Catholic Affiliation | Unknown | + + + | Race | Unknown | + + + | Ethnic Group | Unknown | + + + Author + + + | Author | [facility] | | | and [facility] | + + + | Organization | [facility] | | | and [...] Team Providers + +------+ + | Care Senior Mechanical Design Engineer Name | Role | Phone | + +------+ + | Harpreet Hector MD | PCP | | + +------+ + Allergies No Known Allergies Medications + +-----+ +---------+------+------+-------+ | Medication | Sig | Dispensed | Refills | Star | End | Statu | | | | | | t | Date | s | | | | | | Date | | | + +-----+ +---------+------+------+-------+ | amLODIPine | | | 0 | 08/1 | | Activ | | (NORVASC) 5 mg | | | | 9/20 | | e | | tablet | | | | 18 | | | + +-----+ +---------+------+------+-------+ Active Problems Not on file Social History + +-------+ +--------+------+ | Tobacco [...] | 126.1 kg (278 lb) | 10/26/2017 9:59 AM | | | | | PDT | | + + + + + | Height | 160 cm (5' 3") | 10/26/2017 9:59 AM | | | | | PDT | | + + + + + | Body Mass Index | 49.25 | 10/26/2017 9:59 AM | | | | | PDT | | + + + + + Plan of Treatment + + + + + | Health Maintenance | Due Date | Last Done | Comments | + + + + + | Vaccine: | | | | | Dtap/Tdap/Td (1 - | 9 | | | | Tdap) | | [...]
--- OUTSIDE RECORDS SUMMARY | ~2019-03-13 | XMS | Encounter Summary ---
Demographics + + + | Address | [address] | | | [place] [address] | + + + | Home Phone [...] + + + | Author | [facility] [employer] [facility] | + + + | Organization | [facility] [employer] [facility] | + + + | Address | Unknown | + + + | Phone | Unavailable | + + + Support + + +---------+ + | Name | Relationship | Address | Phone | + + +---------+ + | Alen Perez | ECON | Unknown | | + + +---------+ + Care Team Providers + +------+ + | Care Caustic Room Operator Name | Role | Phone | + +------+ + | Harpreet Hector MD | PCP | | + +------+ + Encounter Details +--------+ + + + + | Date | Type | Department | Care Team | Description | +--------+ + + + + | 02/04/ | MyChart | Digestive Health | April Potts ACNP | Pre op | | 2019 | Encounter | Center at [facility] [address] | [address] | | | | | [address] | [place], | | | | | Mailcode: [place] | [place] [address] | | | | | for Health and | [phone] | | | | | [facility] [address] | | | | | | [place], [place] | | | | | | [address] | | | | | | [phone] | | | +--------+ + + + [...] | | | | | | [place] [address] | | +--------+---------+ + + + | 06/12/ | Office | Pain Management | Javon Gallego, | | | 2019 | Visit | | PhD [address] | | | | | | [place] | | | | | | [address] | | | | | | [phone] | | | | | | | | +--------+---------+ + + + | 07/06/ | Office | Surgery | | | | 2019 | Visit | | | | +--------+---------+ + + + documented as of this encounter Visit Diagnoses Not on filedocumented in this encounter"
--- OUTSIDE RECORDS SUMMARY | ~2019-03-13 | XMS | Encounter Summary ---
Demographics + + + | Address | [address] | | | [place] [address] | + + + | Home Phone | | + + + | Preferred Language | Unknown | + + + | Marital Status | Unmarried Domestic Partner | + + + | Hindu Affiliation | Unknown | + + + | Race | White | + + + | Ethnic Group | Not or | + + + Author + + + | Author | [facility] [employer] [facility] | + + + | Organization | [facility] [employer] [facility] | + + + | Address | Unknown | + + + | Phone | Unavailable | + + + Support + + +---------+ + | Name | Relationship | Address | Phone | + + +---------+ + | Alen Perez | ECON | Unknown | | + + +---------+ + Care Team Providers + +------+ + | Care Photo Mask Processor Name | Role | Phone | + [...] | | 2019 | | Center at [facility] [address] | | Review | | | | [address] | | | | | | Mailcode: [place] | | | | | | for Health and | | | | | | [facility], [address] | | | | | | [place], [place] | | | | | | [address] | | | | | | [phone] | | | +--------+ + + + [...] | | | | | [place], | | | | | | [place] [address] | | +--------+---------+ + + + | 06/12/ | Office | Pain Management | Javon Gallego, | | | 2019 | Visit | | PhD [address] | | | | | | [place], [place] | | | | | | [address] | | | | | | [phone] | | | | | | | | +--------+---------+ + + + | 07/06/ | Office | Surgery | | | | 2019 | Visit | | | | +--------+---------+ + + + documented as of this encounter Visit Diagnoses Not on filedocumented in this encounter"
--- OUTSIDE RECORDS SUMMARY | ~2019-03-13 | XMS | Encounter Summary ---
Demographics + + + | Address | [address] | | | [place] [address] | + + + | Home Phone | | + + + | Preferred Language | Unknown | + + + | Marital Status | Unmarried Domestic Partner | + + + | Church Affiliation | Unknown | + + + | Race | White | + + + | Ethnic Group | Not or | + + + Author + + + | Author | [facility] [employer] [facility] | + + + | Organization | [facility] [facility] | + + + | Address | Unknown | + + + | Phone | Unavailable | + + + Support + + +---------+ + | Name | Relationship | Address | Phone | + + +---------+ + | Alen Perez | ECON | Unknown | | + + +---------+ + Care Team Providers + +------+ + | Care Shop Helper Name | Role | Phone | + +------+ + | Harpreet Hector MD | PCP | | + +------+ + Encounter Details +--------+ + + + + | Date | Type | Department | Care Team | Description | +--------+ + + + + | 03/12/ | MyChart | Digestive Health | | Bariatric homework | | 2020 | Encounter | Center at [facility] [address] | | list update | | | | [address] | | | | | | Mailcode: Center | | | | | | for Health and | | | | | | Healing, [address] | | | | | | [place], [place] | | | | | | [address] | | | | | | [phone] | | | +--------+ + + + [...] | | | | | | [place] [address] | | +--------+---------+ + + + | 06/12/ | Office | Pain Management | Javon Gallego, | | | 2019 | Visit | | PhD [address] | | | | | | [place] | | | | | | [address] | | | | | | [phone] | | | | | | | | +--------+---------+ + + + | 07/06/ | Office | Surgery | | | | 2019 | Visit | | | | +--------+---------+ + + + documented as of this encounter Visit Diagnoses Not on filedocumented in this encounter"
--- OUTSIDE RECORDS SUMMARY | ~2019-03-13 | XMS | Clinical Summary ---
Demographics + + + | Address | [address] | | | [place] [address] | + + + | Home Phone | | + + + | Preferred Language | Unknown | + + + | Marital Status | Unknown | + + + | Confucianist Affiliation | Unknown | + + + | Race | Unknown | + + + | Ethnic Group | Unknown | + + + Author + + + | Author | [facility] | | | and [facility] | + + + | Organization | [facility] | | | and [place] | + + + | Address | Unknown | + + + | Phone | Unavailable | + + + Support +--------+ +---------+ + | Name | Relationship | Address | Phone | +--------+ +---------+ + | One No | ECON | Unknown | | +--------+ +---------+ + Care Team Providers + +------+ + | Care Zoning Technician Name | Role | Phone | + [...]
--- OUTSIDE RECORDS SUMMARY | ~2019-03-13 | XMS | Encounter Summary ---
Demographics + + + | Address | [address] | | | [place] [address] | + + + | Home Phone | | + + + | Preferred Language | Unknown | + + + | Marital Status | Unmarried Domestic Partner | + + + | Congregation Affiliation | Unknown | + + + | Race | White | + + + | Ethnic Group | Not or | + + + Author + + + | Author | [facility] | + + + | Organization | [facility] | + + [...] Providers + +------+ + | Care Manager Export Name | Role | Phone | + +------+ + PCP | Unavailable | + +------+ + Encounter Details +--------+ + + + + | Date | Type | Department | Care Team | Description | +--------+ + + + + | 07/17/ | Abstract | Digestive Health | Clinic, Surgery | | | 2019 | | [facility] [address] | | | | | | [address] | | | | | | Mailcode: [place] | | | | | | for Health and | | | | | | Healing, [address] | | | | | | [place], [place] | | | | | | [address] | | | | | | [phone] | | | +--------+ + + + [...] | | | | | [place], | | | | | | [place] [address] | | +--------+---------+ + + + | 06/12/ | Office | Pain Management | Javon Gallego, | | | 2019 | Visit | | PhD [address] | | | | | | [place], [place] | | | | | | [address] | | | | | | [phone] | | | | | | | | +--------+---------+ + + + | 07/06/ | Office | Surgery | | | | 2019 | Visit | | | | +--------+---------+ + + + documented as of this encounter Visit Diagnoses Not on filedocumented in this encounter"
--- OUTSIDE RECORDS SUMMARY | ~2019-03-13 | XMS | Encounter Summary ---
Demographics + + + | Address | [address] | | | [place] [address] | + + + | Home Phone | | + + + | Preferred Language | Unknown | + + + | Marital Status | Unmarried Domestic Partner | + + + | Nondenominational Affiliation | Unknown | + + + | Race | White | + + + | Ethnic Group | Not or | + + + Author + + + | Organization | Unknown | + + + | Address | Unknown | + + + | Phone | Unavailable | + + + Support + + +---------+ + | Name | Relationship | Address | Phone | + + +---------+ + | Alen Perez | ECON | Unknown | | + + +---------+ + Care Team Providers + +------+ + | Care Loan Reviewer Name | Role | Phone | + +------+ + | Harpreet Hector MD | PCP | | + +------+ + Encounter Details +--------+--------+ + + + | Date | Type | Department | Care Team | Description | +--------+--------+ + + + | 11/15/ | Travel | | | | | 2019 | | | | | +--------+--------+ + + + Social History + +-------+ [...] | | | | | [place], | | | | | | [place] [address] | | +--------+---------+ + + + | 06/12/ | Office | Pain Management | Javon Gallego, | | | 2019 | Visit | | PhD [address] | | | | | | [place], [place] | | | | | | [address] | | | | | | [phone] | | | | | | | | +--------+---------+ + + + | 07/06/ | Office | Surgery | | | | 2020 | Visit | | | | +--------+---------+ + + + documented as of this encounter Visit Diagnoses Not on filedocumented in this encounter"
--- OUTSIDE RECORDS SUMMARY | ~2019-03-13 | XMS | Encounter Summary ---
Demographics + + + | Address | [address] | | | [place] [address] | + + + | Home Phone | | + + + | Preferred Language | Unknown | + + + | Marital Status | Unmarried Domestic Partner | + + + | Adventism Affiliation | Unknown | + + + | Race | White | + + + | Ethnic Group | Not or | + + + Author + + + | Author | [facility] | + + + | Organization | [facility] [employer] [facility] | + + + | Address | Unknown | + + + | Phone | Unavailable | + + + Support + + +---------+ + | Name | Relationship | Address | Phone | + + +---------+ + | Alen Perez | ECON | Unknown | | + + +---------+ + Care Team Providers + +------+ + | Care Net Software Architect Name | Role | Phone | + +------+ + | Harpreet Hector MD | PCP | | + +------+ + Reason for Visit Physical Therapy (Routine) +--------+--------+ + + + [...] | | | | | Procedures | [place], | [facility] | | | | | PHYSICAL | [place] | for Health | | | | | THERAPY | [address] | and Healing, | | | | | REFERRAL | Phone: | Building [address], | | | | | | | [address] | | | | | | Fax: | [place], [place] | | | | | | [phone] | [address] | | | | | | | Phone: | | | | | | | [phone] | | | | | | | Fax: | | | | | | | [phone] | +--------+--------+ + + + + Encounter Details +--------+---------+ + + + | Date | Type | Department | Care Team | Description | +--------+---------+ + + + | 11/15/ | Office | [facility] | Adriaella, | Morbid obesity (HCC) | | 2019 | Visit | Therapy Services at | Maryjo, PT [address] | (Primary Dx); | | | [facility] | [facility] | Decreased mobility | | | | [address] | [address] [place], [place] | and endurance | | | | Mailcode: [facility] | [address] | | | | | [place] for [facility] | | | | | | and Healing, | | | | | | Building [address], | | | | | | Floor [place], [place] | | | | | | [address] | | | | | | [phone] | | | +--------+---------+ + + + [...] + + documented as of this encounter Progress Notes Maryjo Stanley, PT - 11/15/2018 2:15 PM PDTFormatting of this note might be differen t from the original. Insurance: Payor: [facility] MEDICAID / Plan: [facility] [place] / Product Type: Medicaid / Non-Medicare [facility] PHYSICAL THERAPY EVALUATION Past Medical History: Diagnosis Date GERD (gastroesophageal reflux disease) Headache Hypertension Irregular periods Leaking of urine SOB (shortness of breath) Past Surgical History Procedure Laterality Date Appendectomy Caesarean section Caesarean section Current Outpatient Medications: amLODIPine 5 mg oral tablet, , Disp: , Rfl: Previous physical therapy treatment or alternative treatments for this condition includes: none. Results of previous treatment: N/A. 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 SUBJECTIVE: 11/15/2018 History of Presenting Problems: Arely is a 33 y.o. person for prehabilitation evaluation p rior to Bariatric abdominal surgery. Reports goals to lose weight and feel healthier. Activity limitations and participation restrictions: decreased energy, low back pain after long work shift Patient's Activity and participation goal(s) with therapy: lose weight Expected date for surgery: 6 months Current functional Status: Pain Reported in location of low back after a day at work. Pain is a 0 on a scale of 0-10, at best 0/10, and at worst 4/10. The following activities aggravate the pain: lifting and bending. The pain is relieved by m edication and rest. Patient's sleep is not interrupted by pain. Currently sleeps 7 hours per night and wakes rested. Uses bi-pap machine. 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 Anxieties or concerns about therapy: none OBJECTIVE EXAM: Weight: 282 lb 12.8 oz; BMI: 50.10 kg/m Posture: WFL ROM: WNL bilateral UE and LEs, mild decrease hip flexion due to body habitus Strength Screen: Muscle Group Left 11/15/2018 Right 11/15/2018 Shoulder Elevation 5/5 5/5 Shoulder Abduction 5/5 5/5 Elbow Flexion 5/5 5/5 Elbow Extension 5/5 5/5 Hip Flexion (L2-3) 5/5 5/5 Knee Extension (L3-4) 5/5 5/5 Knee Flexion (L1-2) 5/5 5/5 Dorsiflexors (L4-5) 5/5 5/5 Note 5/5=normal strength *= pain with motion BOLD= concerning Outcome Measures: Outcome measure Interpretation 33 y.o. Score 11/15/2018 30 sec sit to stand 33 y.o. Normal values; 32 y/o = 30 reps 13 reps, without use of UEs 6 min walk test 33 y.o. 30-39 yo: female 2133' Significant change is ~ > 170 ft Distance: 1325 (11/15/18 1400) Pre Walk Vitals 131/81 mmHG Post Walk Vitals Pulse: 75 (11/15/18 1400) BP: 148/86 (11/15/18 1400) 62% Predicted distance TREATMENT TODAY: Evaluation, Therapeutic Exercise Treatment: Established home program with handout as listed below: Treatment: Patient education on >150 minutes of physical activity in a week. Broken into 10 minute se ssions for a total of 30 minutes a day Patient education on using Rate of Perceived Exertion scale- goal for 06/05 Patient education on abdominal precautions- patient already familiar due to prior s Patient education on Log roll technique- patient already familiar due to prior c-sections Educated on alternative options for cardio: treadmill, recumbent bike, pool Intervention Comments Predicted Compliance good Progressive walking program 11/15/2018 Walking outdoors now, has access to family member's treadmill and bike, looking into getting a bike and/or treadmill for home General light strengthening/stretching exercises 11/15/2018 Logroll instruction 11/15/2018 Abdominal precautions instruction 11/15/2018 * indicates date intervention started. see comments for details of compliance, modification s, deletions ASSESSMENT: Patient is a 33 y.o. person referred to PT for prehabilitation evaluation prior to Bariatric abdominal surgery. Symptoms are limiting patient with daily and functional activities including having decreas ed energy and mild back pain with long shift at work. Patient exam findings include decrease d hip flexion ROM, decreased functional LE strength (per sit to stand test), decreased activ ity tolerance and physical deconditioning. Pt scored at 62% predicted distance in 6 Minute W alk Test as compared to age and gender matched normative values, indicating deficits in aero bic endurance. Patient has been provided instruction on appropriate exercise and pain contr ol strategies to increase aerobic PA to prepare for major bariatric abdominal surgery. Patient lives 4 hours away and will be unable to return to clinic for follow up. She does n ot appear to require skilled PT services at this time, and should be ok to follow through [facility] recommendations and HEP. Goals: Goal: set 11/15/2018 Status Pt will show improvement in 30-second sit to stand to age and gender appropriate level Pt will show improvement in 6 minute walk test by at least 170 ft, representing clinical an d functional improvement in endurance Pt will be 100% independent in home exercise program Pt will participate in 30 minutes or aerobic activity, 5 days per week Pt will perform strength training 3 times per week See topics above to identify problem areas and goals Personal factors/Comorbidities: Gait/Locomotion, Sleep complications, Cardiopulmonary and Height/Weight BMI Communication: No noted deficits, Psychosocial: No noted deficits, Mode rate 1-2 Body structures & functions, Activity limitations, participation restrictions: Gait/Locomot ion, Sleep complications and Height/Weight BMI Work/school, Family home life, Recreational sport, Breathing and Sleeping Moderate - 3 or more Stability of condition: Pre-op status with uncertain recovery course Low- Stable Clinical decision making: Pre-op status with uncertain recovery course Low - Uncomplicated Complexity: Low - 51011 The patient requires services that can be safely and effectively performed only by a qualif ied therapist to address the aforementioned and highlighted problems and goals. Goals discussed and agreed upon with patient and/or family. Individual cultural and social needs addressed. Rehab Potential: Good, if Arely carries through with home exercise program. This note is to serve as the discharge summary if the patient fails to attend further Physi debbi Therapy appointments or contact the therapist regarding any change in their status. Maryjo Stanley, PT [facility] PHYSICAL TH[facility] SERVICES AT [facility] Scheduled Appointment time: 2:15 PM The patient was seen for a total of 45 minutes of treatment time. 45 minutes was in direct contact care as described above and on completed flow sheets. Treatment Interventions duration in minutes: Procedure:Physical Therapy Evaluation and Ther apeutic Exercise 10 min Authorization information for first visit and progress reports Procedure Codes: n/a Minutes per session: n/a Total number of visits: 1 Frequency: 1x visit Duration: 1 week (must exceed or match Medicare service period request) Service period from: 11/15/2018 to: 02/25/2019 (Medicare must match duration or be no great er than 90 days if proposed duration is greater than 3 months) Start of care: 11/15/2018 Referral information Authorizing Provider: MADISON GOLDSTEIN [[id number]] Onset/Referral Date: 08/20/18 Primary/Referral Diagnosis: E66.01 Morbid obesity (HCC) Z74.09 Decreased mobility and endurance Next progress report 01/14/2019 Insurance: Payor: [employer] MEDICAID / Plan: [facility] [place] / Product Type: Medicaid / Number visits authorized: 1 Number visits used: 1 Outcome Measure 11/15/2018 . documented in th is encounter Plan of Treatment +--------+---------+ + + + | Date | Type | Specialty | Care Team | Description | +--------+---------+ + + + | 06/12/ | Office | Nutrition | [address] | | | 2019 | Visit | | [address] | | | | | | [place] | | | | | | [place] [address] | | +--------+---------+ + + + | 06/12/ | Office | Pain Management | Javon Gallego, | | | 2019 | Visit | | PhD [address] | | | | | | [place] | | | | | | [address] | | | | | | [phone] | | | | | | | [...] | + +--------+ + + + | [place] [facility] | Routin | 11/16/2018 | Morbid obesity | | | EXERCISES | e | 10:16 AM | ([facility]) Decreased | | | | | PDT | mobility and | | | | | | endurance | | + +--------+ + + + documented in this encounter Visit Diagnoses + + | Diagnosis | + + | Morbid obesity (HCC) - Primary Morbid obesity | + + | Decreased mobility and endurance | + + documented in this encounter"
--- OUTSIDE RECORDS SUMMARY | ~2019-03-13 | XMS | Encounter Summary ---
Demographics + + + | Address | [address] | | | [place] [address] | + + + | Home Phone | | + + + | Preferred Language | Unknown | + + + | Marital Status | Unknown | + + + | Sabianism Affiliation | Unknown | + + + | Race | Unknown | + + + | Ethnic Group | Unknown | + + + Author + + + | Author | [facility] [place] | | | and Carlos Eduardoana | + + + | Organization | [facility] [place] | | | and [place] [...] Providers + +------+ + | Care Dental Technician Instructor Name | Role | Phone | + [...] [place] | | | | | | [address] | (Fax) | | | | | [phone] | | | +--------+ + + + [...]
--- OUTSIDE RECORDS SUMMARY | ~2019-03-13 | XMS | Encounter Summary ---
Demographics + + + | Address | [address] | | | [place] [address] | + + + | Home Phone [...] Team Providers + +------+ + | Care Office Services Clerk Name | Role | Phone | + [...] | | | | | [place] Salazar [place], | | | | | | [place] [address] | | +--------+---------+ + + + | 06/12/ | Office | Pain Management | Javon Gallego, | | | 2019 | Visit | | PhD [address] | | | | | | [place], [place] | | | | | | [address] | | | | | | [phone] | | | | | | | | +--------+---------+ + + + | 07/06/ | Office | Surgery | | | | 2020 | Visit | | | | +--------+---------+ + + + documented as of this encounter Visit Diagnoses Not on filedocumented in this encounter"
--- OUTSIDE RECORDS SUMMARY | ~2019-03-13 | XMS | Clinical Summary ---
Demographics + + + | Address | [address] | | | [place] [address] | + + + | Home Phone | | + + + | Preferred Language | Unknown | + + + | Marital Status | Unknown | + + + | Confucianism Affiliation | Unknown | + + + | Race | Unknown | + + + | Ethnic Group | Unknown | + + + Author + + + | Author | [facility] (Historical as of | | | 10-12-18) | + + + | Organization | [facility] (Historical as of | | | 10-12-18) | + + + | Address | Unknown | + + + | Phone | Unavailable | + + + Support +--------+ +---------+ + | Name | Relationship | Address | Phone | +--------+ +---------+ + | No,One | ECON | Unknown | | +--------+ +---------+ + Care Team Providers + +------+ + | Care Chop Saw Operator Name | Role | Phone | [...] +------+-------+ + | MEDICAID | [place] | [id number] | | | [address] | | | N | | | | [place] | | | [place] | | | | [address] | | | GENERAL ENGINEER | | | | | + +--------+ [...] 1985 | [phone] | [place] [address] | | | ashley | | | [phone] | | + +--------+ +--------+ + +
--- OUTSIDE RECORDS SUMMARY | ~2019-03-13 | XMS | Encounter Summary ---
Demographics + + + | Address | [address] | | | [place] [address] | + + + | Home Phone | | + + + | Preferred Language | Unknown | + + + | Marital Status | Unmarried Domestic Partner | + + + | Baptism Affiliation | Unknown | + + + | Race | White | + + + | Ethnic Group | Not or | + + + Author + + + | Author | [facility] | + + + | Organization | [facility] | + + + | Address | Unknown | + + + | Phone | Unavailable | + + + Support + + +---------+ + | Name | Relationship | Address | Phone | + + +---------+ + | Alen Perez | ECON | Unknown | | + + +---------+ + Care Team Providers + +------+ + | Care Stock Worker And Deliverer Name | Role | Phone | + [...] Psychology / | Diagnoses | Petcu, | Registered Pharmacy Technician Psych | | | | Pain | [...] | | | | | PAIN | [address] | and Healing, | | | | | MANAGEMENT | Phone: | Building [address], | | | | | | [phone] | 15th Floor | | | | | | Fax: | [place], [place] | | | | | | [phone] | [address] | | | | | | | Phone: | | | | | | | [phone] | | | | | | | Fax: | | | | | | | [phone] | + +---------+ + + + + [...] | [facility] | | | with FISHING LURE ASSEMBLER | | | | [id number] | [...] | | | | | | | [place], [place] | | | | | | | [address] | | | | | | | Phone: | | | | | | | [phone] | | | | | | | Fax: | | | | | | | [phone] | +--------+ + + + + + [...] | | [address] | Ronda Salazar [place], | | | | | Mailcode: [place] | [place] [address] | | | | | for Health and | [phone] | | | | | Healing, [address] | | | | | | [place], [place] | | | | | | [address] | | | | | | [phone] | | | +--------+---------+ + + + [...] Pre-op Psychological Evaluation: Your referral is at [facility], the Pain Management Office w ill call [...] to your private appointme nt with the certified nurse practitioner. These classes will be scheduled apporoximately 1 month apart to allow time for you to put the teaching into action. Please call [phone] to schedule these classes after you have [...] provider or call our main office number [phone] to have us help clarify. Note: It can take up to 1 year to get to surgery date. +patient willing and able to be compliant with post operative treatment plan + Sign up for [employer] so that we can communicate easily back and forth Once the above list is completed and copies have been received by our office, we will submi t for insurance authorization then schedule with the surgeon. +Please join us for our twice monthly [facility] Bariatric Support Group meetings on the FeZo platform. Download the yumiko on your smartphone or visit the website [email or web address]. Click "join a meeting " enter the meeting number below at the scheduled time. Our monthly schedule is as follows: The Sunday of every month at 5:30PM The Sunday of every month at 1:00PM The meeting number is: [phone] Please note that this is an optional [...] other providers does not guarantee that the [facility] Bariatric Surger y program will deem you a surgical candidate. documented in this encounter Progress Notes Larry Stockton - 11/15/2018 12:50 PM PDTPatient presents for blood draw per Providers order Site: RIGHT A/C Time: 13:25 Patient tolerated well; TWO ATTEMPTS etcu, ROLANDO Chen - 2018 12:50 PM PDT BARIATRIC SURGERY INITIAL VISIT Provider: April Potts, MSN, -ACNP, SOFT METALS ENGRAVER HAND Referring Provider: Theresa Hector Reason for Requested [...] Redux or Phen/fen: no Transthoracic ECHO: na Baptism or cultural reason you would refuse blood [...] file Gets together: Not on file Attends episcopalian service: Not on file Active member of [...] Positive hypertension. Hema es hyperlipidemia. Denies CHF, OK, ischemic heart disease, DVT/PE, or pulmonary hypertension [...] Pre-op Psychological Evaluation: Your referral is at [facility], the Pain Management Office w ill call [...] to your private appointme nt with the certified nurse practitioner. These classes will be scheduled apporoximately 1 month apart to allow time for you to put the teaching into action. Please call [phone] to schedule these classes after you have [...] provider or call our main office number [phone] to have us help clarify. Note: It can take up to 1 year to get to surgery date. +patient willing and able to be compliant with post operative treatment plan + Sign up for [employer] so that we can communicate easily back and forth Once the above list is completed and copies have been received by our office, we will submi t for insurance authorization then schedule with the surgeon. +Please join us for our twice monthly [facility] Bariatric Support Group meetings on the FeZo platform. Download the yumiko on your smartphone or visit the website [email or web address]. Click "join a meeting " enter the meeting number below at the scheduled time. Our monthly schedule is as follows: The Sunday of every month at 5:30PM The Sunday of every month at 1:00PM The meeting number is: [phone] Please note that this is an optional [...] other providers does not guarantee that the [facility] Bariatric Surger y program will deem you a surgical candidate. April Potts, MSN, AG-ACNP, SOFT METALS ENGRAVER HAND Bariatric Surgery Nurse Practitioner [facility] | [address] | [place], [place] | [address] | I have spent 60 min with [...] | | | | | Ronda Salazar [facility] | | | | | | [place] [address] | | +--------+---------+ + + + | 06/12/ | Office | Pain Management | Javon Gallego, | | | 2019 | Visit | | PhD [address] | | | | | | [place], [place] | | | | | | [address] | | | | | | [phone] | | | | | | | [...] | | VENIPUNCTURE, | | e | ([facility]) | | | VENOUS-BACK OFFICE | | [...] | + + + + + | [facility] | [address] | [place] [address] | | | SERVICES, CORE | RONDA [...] | + + + + + | [facility] | [address] | [place] [address] | | | SERVICES, CORE | RONDA [...] [facility] | [address] | [place] [address] | | | SERVICES, CORE | RONDA [...] B: | | | | | | TUBE/CSPerformed | | | | | | by [employer],[address] | | | | | | [address], [facility] | | | | | | [address] | | | | | | [phone].The Cle[employer]. | | | | | | san juan hospitalChandler MD, | | | | | | [...] [facility] | [address] | [place], [place] | | | UN[facility] P[facility] INT[facility] | | [address] | | + + + + + [...] | + + + + + | [facility] | [address] | [place] [address] | | | SERVICES, CORE | RONDA [...] | | | | | determined by [employer] | | | | | | Laboratories. See | | | | | | Compliance Statement B: | | | | | | The Clearing.Phylogy/CSPerformed | | | | | | by [employer],[address] | | | | | | [address], [facility],[place] | | | | | | [address] | | | | | | [phone].[employer] Cle[employer]. | | | | | | san juan hospitalChandler MD, | | | | | | [...] + | [facility] | [address] [facility] | [place], [place] | | | UNIV PTH - INTFC | | [address] | | + + + + + [...] | + + + + + | [facility] | [address] | [place] [address] | | | SERVICES, CORE | PARK [...] [facility] | [address] | [place] [address] | | | SERVICES, CORE | RONDA [...] | + + + + + | [facility] | [address] | [place] [address] | | | SERVICES, SPECIAL | RONDA [...] | [facility] | | considered for monitoring buttermaker helper glycemic control in patients with: | LABORATORY [...] | + + + + + | [facility] | [address] | [place] [address] | | | SERVICES, SPECIAL | PARK [...] [facility] | [address] | [place] [address] | | | SERVICES, CORE | PARK [...] | | | LABORATORY | | | [place]DI[place] | | | SERVICES, | | | [...] MDRD equation recommended by the National | [facility] | | Kidney Disease Education Program. Estimated [...] + + + + + | [facility] | [address] | [place] [address] | | | SERVICES, CORE | [address] | | | + + + + + documented in this encounter Visit Diagnoses + + | Diagnosis | + + | Morbid obesity (HCC) - Primary Morbid obesity | + + documented in this encounter
--- OUTSIDE RECORDS SUMMARY | ~2019-03-13 | XMS | Encounter Summary ---
Demographics + + + | Address | [address] | | | [place] [address] | + + + | Home Phone | | + + + | Preferred Language | Unknown | + + + | Marital Status | Unmarried Domestic Partner | + + + | Anabaptist Affiliation | Unknown | + + + | Race | White | + + + | Ethnic Group | Not or | + + + Author + + + | Author | [facility] | + + + | Organization | [facility] | + + + | Address | Unknown | + + + | Phone | Unavailable | + + + Support + + +---------+ + | Name | Relationship | Address | Phone | + + +---------+ + | Alen Perez | ECON | Unknown | | + + +---------+ + Care Team Providers + +------+ + | Care Search Engine Optimization Consultant Name | Role | Phone | + [...] | | | | | Procedures | [place], | [facility] | | | | | PHYSICAL | [place] | for Health | | | | | THERAPY | [address] | and Healing, | | | | | REFERRAL | Phone: | Building [address], | | | | | | | [address] Floor | | | | | | Fax: | [place], [place] | | | | | | [phone] | [address] | | | | | | | Phone: | | | | | | | [phone] | | | | | | | Fax: | | | | | | | [phone] | +--------+--------+ + + + + Encounter Details +--------+---------+ + + + | Date | Type | Department | Care Team | Description | +--------+---------+ + + + | 11/15/ | Office | [facility] | Adriaella, | Morbid obesity (HCC) | | 2019 | Visit | Therapy Services at | Maryjo, PT [address] | (Primary Dx); | | | | [facility] | [facility] | Decreased mobility | | | | [address] | [address] [place], [place] | and endurance | | | | Mailcode: [facility] | [address] | | | | | [place] for [facility] | | | | | | and Healing, | | | | | | Building [address], | | | | | | Floor [place], [place] | | | | | | [address] | | | | | | [phone] | | | +--------+---------+ + + + [...] differen t from the original. Insurance: Payor: [facility] / Plan: [facility] [place] / Product Type: Medicaid / Non-Medicare [facility] PHYSICAL THERAPY EVALUATION Past Medical History: Diagnosis [...] treatment: N/A. 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 Anxieties or concerns [...] and should be ok to follow through [facility] recommendations and HEP. Goals: Goal: set [...] course Low - Uncomplicated Complexity: Low - 16547 The patient requires services that can be [...] change in their status. Maryjo Stanley, PT [facility] Scheduled Appointment time: 2:15 PM The patient [...] 11/15/2018 Referral information Authorizing Provider: MADISON GOLDSTEIN [[id number]] Onset/Referral Date: 08/20/18 Primary/Referral Diagnosis: E66.01 Morbid obesity (HCC) Z74.09 Decreased mobility and endurance Next progress report 01/14/2019 Insurance: Payor: [employer] / Plan: [facility] [place] / Product Type: Medicaid / [...] | | | | | [place] [address] | | +--------+---------+ + + + | 06/12/ | Office | Pain Management | Javon Gallego, | | | 2019 | Visit | | PhD [address] | | | | | | [place] | | | | | | [address] | | | | | | [phone] | | | | | | | [...] | + +--------+ + + + | [facility] THERAPEUTIC | Routin | 11/16/2018 | Morbid obesity | | | EXERCISES | e | 10:16 AM | ([facility]) Decreased | | | | | PDT [...]
--- OUTSIDE RECORDS SUMMARY | ~2019-03-13 | XMS ---
Demographics + + + | Address | [address] | | | [place] [address] | + + + | Preferred Language | Unknown | + + + | Marital Status | Unknown | + + + | Adventism Affiliation | Unknown | + + + | Race | Unknown | + + + | Ethnic Group | Unknown | + + + Author + + + | Author | [facility] | + + + | Organization | [facility] | + + + | Address | [address] | | | [place] [address] | + + + | Phone | | + + + Care Team Providers + + + + | Care Store Mgr Name | Role | Phone | + + + + Unavailable | Unavailable | + + + + PROBLEMS +---------+ + + +--------+ + + | Type | Condition | ICD9-CM | VMT12-BJ | Onset | Condition | SNOMED | | | | Code | Code | Dates | Status | Code | +---------+ + + +--------+ + + | Problem | Cough | 786.2 | | | Active | [id number] | +---------+ + + +--------+ + + | Problem | Strep | 034.0 | | | Active | [id number] | | | throat | | | | | | +---------+ + + +--------+ + + | Problem | Otitis | 382.9 | | | Active | [id number] | | | media | | | | | | +---------+ + + +--------+ + + | Problem | Elevated | R94.5 | | | Active | [id number] | | | LFTs | | | | | | +---------+ + + +--------+ + + | Problem | Family | Z80.3 | | | Active | [id number] | | | history of | | | | | | | | breast | | | | | | | | cancer | | | | | | +---------+ + + +--------+ + + | Problem | Back pain | | M54.9 | | Active | [id number] | +---------+ + + +--------+ + + | Problem | NAFLD | K76.0 | | | Active | [id number] | | | (nonalcoho | | | | | | | | lic fatty | | | | | | | | liver | | | | | | | | disease) | | | | | | +---------+ + + +--------+ + + | Problem | Overweight | | E66.3 | | Active | [id number] | +---------+ + + +--------+ + + | Problem | Candidal | B37.2 | | | Active | [id number] | | | intertrigo | | | | | | +---------+ + + +--------+ + + ALLERGIES + + + + +---------+ | Substance | Reaction | Event Type | Date | Status | + + + + +---------+ | N.[email or web address]. | Unknown | Non Drug | Jul, | Unknown | | | | Allergy | | | + + + + +---------+ SOCIAL HISTORY No smoking Hx information available PLAN OF CARE + +---------+ | Activity | Details | + +---------+ +---+ | | +---+ + + + | Follow Up | 4 Months Reason:null | + + + VITAL SIGNS + + + + | Height | 63 in | 2016-08-24 | + + + + | Weight | 265.2 lbs | 2016-08-24 | + + + + | BMI | 46.97 kg/m2 | 2016-08-24 | + + + + | Temperature | 97.5 degrees Fahrenheit | 2016-08-24 | + + + + | Heart Rate | 63 /min | 2016-08-24 | + + + + | Blood pressure systolic | 144 mm Hg | 2016-08-24 | + + + + | Blood pressure diastolic | 64 mm Hg | 2016-08-24 | + + + + MEDICATIONS Unknown Medications RESULTS No Results PROCEDURES + + + + + | Procedure | Date Ordered | Related Diagnosis | Body Site | + + + + + | Est Level III | August 24, 2016 | | | | Intermediate | | | | + + + + + | DSCHRG MED/CURRENT | August 24, 2016 | | | | MED MERGE | | | | + + + + + IMMUNIZATIONS No Known Immunizations"
--- OUTSIDE RECORDS SUMMARY | ~2019-03-13 | XMS | Encounter Summary ---
Demographics + + + | Address | [address] | | | [place] [address] | + + + | Home Phone [...] + + | Author | [facility] | + + + | Organization | [email or web address] | + + + | Address | Unknown | + + + | Phone | Unavailable | + + + Support + + +---------+ + | Name | Relationship | Address | Phone | + + +---------+ + | Alen Perez | ECON | Unknown | | + + +---------+ + Care Team Providers + +------+ + | Care Narrow Gauge Brakeman Name | Role | Phone | + [...] | 2019 | Encounter | Center at [facility] [address] | [address] | | | | | [address] | [place], | | | | | Mailcode: [place] | [place] [address] | | | | | for Health and | [phone] | | | | | [facility] [address] | | | | | | [place], [place] | | | | | | [address] | | | | | | [phone] | | | +--------+ + + + [...] | | | | | | [place] [address] | | +--------+---------+ + + + | 06/12/ | Office | Pain Management | Javon Gallego, | | | 2019 | Visit | | PhD [address] | | | | | | [place] | | | | | | [address] | | | | | | [phone] | | | | | | | | +--------+---------+ + + + | 07/06/ | Office | Surgery | | | | 2019 | Visit | | | | +--------+---------+ + + + documented as of this encounter Visit Diagnoses Not on filedocumented in this encounter"
--- OUTSIDE RECORDS SUMMARY | ~2019-03-13 | XMS | Encounter Summary ---
Demographics + + + | Address | [address] | | | [place] [address] | + + + | Home Phone | | + + + | Preferred Language | Unknown | + + + | Marital Status | Unmarried Domestic Partner | + + + | Sabianism Affiliation | Unknown | + + + | Race | White | + + + | Ethnic Group | Not or | + + + Author + + + | Author | [facility] | + + + | Organization | [facility] | + + + | Address | Unknown | + + + | Phone | Unavailable | + + + Support + + +---------+ + | Name | Relationship | Address | Phone | + + +---------+ + | Alen Perez | ECON | Unknown | | + + +---------+ + Care Team Providers + +------+ + | Care Rotary Soil Stabilizer Name | Role | Phone | + [...] | | 2019 | | Center at [facility] [address] | | Review | | | | [address] | | | | | | Mailcode: [place] | | | | | | for Health and | | | | | | Healing, [address] | | | | | | [place], [place] | | | | | | [address] | | | | | | [phone] | | | +--------+ + + + [...] | | | | | [place] Salazar [place], | | | | | | [place] [address] | | +--------+---------+ + + + | 06/12/ | Office | Pain Management | Jaovn Gallego, | | | 2019 | Visit | | PhD [address] | | | | | | [place], [place] | | | | | | [address] | | | | | | [phone] | | | | | | | | +--------+---------+ + + + | 07/06/ | Office | Surgery | | | | 2019 | Visit | | | | +--------+---------+ + + + documented as of this encounter Visit Diagnoses Not on filedocumented in this encounter"
[~2019-03-13 00:08] MED LIST: DOCUSATE SODIU100 MG PO; FERROUS SULFAT325 MG PO; IBUPROFEN800 MG PO; OXYCODONE-ACET1 EAC1 PO; PRENATAL ONE T1 EACH PO; PRENATAL VITAM1 EAC7 PO
[2019-03-13] MEDS ORDERED: NORVASC5 MG PO (00:33)
[2019-03-13] MEDS ORDERED: NORCO 5-325 TA1 EACH PO (01:03)
[2019-03-13] MEDS ORDERED: CRUTCH1 EACH (01:04)
== END 2019-03-13 02:05 | disposition home or self-care (01) ==
LOC: ED 00:08
DX: S82.831A Other fracture of upper and lower end of right fibula, initial encounter for closed fracture (principal); D64.9 Anemia, unspecified; Z79.899 Other long term (current) drug therapy; W01.0XXA Fall on same level from slipping, tripping and stumbling without subsequent striking against object, initial encounter
CPT/HCPCS: 73610; 99283-25

== ENCOUNTER 2020-03-04 17:39 | Emergency (ER) | payer OTHER ==
[~2020-03-04] VITALS: Ht 160 cm; Wt 127.9 kg
[~2020-03-04 17:39] MED LIST changes: +ASPIRIN325 MG PO; +CELEBREX200 MG PO; +CRUTCH1 EACH; +HYDROCODON-ACE1 EA11 PO; +NORCO 5-325 TA1 EACH PO; +NORVASC5 MG PO
== END 2020-03-05 00:49 | disposition home or self-care (01) ==
LOC: ED 17:39
DX: N93.9 Abnormal uterine and vaginal bleeding, unspecified (principal); Z79.899 Other long term (current) drug therapy
CPT/HCPCS: 80053; 84703; 85025; 99284

== ENCOUNTER 2020-03-30 06:45 | Day surgery (SDC) | payer OTHER ==
[~2020-03-30] VITALS: Ht 160 cm; Wt 130.0 kg
--- NOTE | 2020-03-30 10:36 | NUR ---
03/30/20 Antonella6 Martha Rodgers 1030-PATIENT ARRIVED TO PACU ON RA RR EVEN. PATIENT DROWSY AROUSES TO VERBAL STIMULI DENIES PAIN OR NAUSEA. ENCOURAGED TO TAKE DEEP BREATHES. SR. [address]ON[address] PAD PLACED BENEATH PATIENT NO DRAINAGE NOTED. IVF INFUSING. PATIENT DOZES BACK TO SLEEP RR EVEN. PATIENT HAS CPAP AND ADVISED TO USE AT HOME.
[2020-03-30] MEDS ORDERED: MOTRIN IB200 MG PO (10:56)
--- NOTE | 2020-03-30 13:28 | NUR ---
PT ALERT, ORIENTED AND PLEASANT. PT RATED PAIN AT 4, SAID SHE IS READY FOR SOME RELIEF. ALL QUESTIONS ASKED ANSWERED. PT DECLINED PRAYER AT THIS TIME WILL FOLLOW NEEDED
--- NOTE | 2020-03-31 12:20 | OR ---
[facility] [address], [place] [address] Signed DATE OF OPERATION: 03/30/2020 SURGEON: Dirk Mendoza MD PREOPERATIVE DIAGNOSIS: Abnormal uterine bleeding and endometrial polyps. POSTOPERATIVE DIAGNOSIS: Abnormal uterine bleeding and endometrial polyps. PROCEDURE: Hysteroscopy with polypectomy and endometrial curettage. CORPORATE PLANNING MANAGER: Dr. Abdi. ANESTHESIA: MAC. ESTIMATED BLOOD LOSS: 20 mL. SPECIMENS: Endometrial polyps and endometrial curettings. DRAINS: None. FINDINGS: Vagina with moderate amount of dark blood. Cervix normal size with dark blood and clot in the os. Uterus was normal size with a large amount of large polyps and thickened endometrial tissue within the cavity. COMPLICATIONS: None. DESCRIPTION OF PROCEDURE: The patient was brought to the operating room, placed in supine position. After adequate MAC was obtained, the patient was placed in dorsal lithotomy position, prepped and draped in usual sterile fashion. A weighted speculum was placed in the vagina and Electronically Signed By: DIRK MENDOZA MD 03/31/20 1220 PATIENT NAME: ROYA DE LEON OPERATIVE REPORT DATE OF : 89 REPORT #: [id number] PHYSICIAN: DIRK MENDOZA MD PCP: HARPREET HECTOR MD REPORT IS CONFIDENTIAL AND NOT TO BE RELEASED WITHOUT AUTHORIZATION [facility] [address] [place] [id number] Signed the anterior lip of the cervix grasped with an Allis clamp. The cervix was serially dilated easily and then the hysteroscope placed in the endocervical canal and entered the uterus under direct visualization. Sterile saline was used as distending medium. It was very difficult to visualize the entire cavity because of the amount of polyps and tissue within the cavity, but attempt was made to isolate the polyps. The hysteroscope was removed and polyp forceps inserted and attempt was made to remove some of the polyps and a small amount of tissue was removed. Hysteroscope was again placed in the endocervical canal and entered the uterine cavity under direct visualization. The hysteroscope was then slowly brought back until the lower segment where polyps could be seen and identified, so the MyoSure REACH was inserted through the operative hysteroscopy and the polyp seen in the lower segment were removed using the MyoSure REACH. With this removal, visualization in the upper cavity was no better. So the hysteroscope was removed. Polyp forceps were then used to blindly remove some tissue and minimal amount was removed, so curette was carefully placed in the uterine cavity and scraped in 360-degree fashion removing moderate amount of irregular appearing tissue. At this point, it was decided to terminate the procedure as this did not seem like the entire amount of tissue would be able to be removed safely, so all instruments were removed, the cervix observed and noted to have good hemostasis, so the weighted speculum removed. The patient tolerated the procedure well, went to the recovery room in good condition. The sponge and instrument counts were correct at the end of the procedure. Endometrial polyps and uterine curettings were sent to Pathology for identification. MD MIREYA Lanza/HERNANDO /[id number] cc: Harpreet Hector MD Copies: HARPREET HECTOR MD ~ Electronically Signed By: DIRK MENDOZA MD 03/31/20 1220 PATIENT NAME: ROYA DE LEON [facility] OPERATIVE REPORT DATE OF : 89 REPORT #: [id number] PHYSICIAN: DIRK MENDOZA MD PCP: HARPREET HECTOR MD REPORT IS CONFIDENTIAL AND NOT TO BE RELEASED WITHOUT AUTHORIZATION
--- NOTE | 2020-04-02 16:14 | PATH ---
[facility] [address], [place] [address] Signed SPECIMEN(S): A ENDOMETRIAL POLYPS AND CURETTINGS SPECIMEN SOURCE: A. ENDOMETRIAL POLYPS AND CURETTINGS CLINICAL HISTORY: Hysteroscopy with biopsy. Pre: Uterine bleeding, polyps. Post: Abnormal uterine bleeding, endometrial polyps, thickening. FINAL PATHOLOGIC DIAGNOSIS: Endometrium, polyps and curettings, polypectomy and curettage: - Polypoid fragments of late secretory/inactive endometrium with hemorrhage, progestogen effect, and features of benign endometrial polyp(s). - Endocervical glandular mucosa and superficial squamous epithelium with no histopathologic abnormality. - Negative for atypical hyperplasia or malignancy. COMMENT: Definitive distinction between background endometrium and endometrial polyps is difficult to ascertain within this specimen. NAL:cml:C2NR MICROSCOPIC EXAMINATION: Histologic sections of all submitted blocks are examined by light microscopy. These findings, together with the gross examination, support the pathologic diagnosis. GROSS DESCRIPTION: The specimen, labeled "AB, endometrial polyps and curettings," is received in formalin and consists of irregular shaped, membranous and hemorrhagic tissue fragment that aggregate measure 6.0 x 3.5 x 1.7 cm. Specimen is entirely submitted in cassettes (A1-A8). JS (under the direct supervision of a pathologist) The Gross Description was prepared using a voice recognition system. The report was reviewed for accuracy; however, sound-alike word errors, addition and/or deletions may occur. If there is any question about this report, please contact Client Services. PERFORMING LABORATORY: The technical component was performed by [facility], [address] [place] [id number] (Optometric Coordinator: Effie Aguirre MD; CLIA# [id number]). PATIENT NAME: ROYA DE LEON PATHOLOGY DATE OF : 89 REPORT #: [id number] PHYSICIAN: TOD PATHOLOGY PCP: ALANNAH MAGUIRE MD REPORT IS CONFIDENTIAL AND NOT TO BE RELEASED WITHOUT AUTHORIZATION [facility] [address], [place] [address] Signed Professional interpretation was performed by [email or web address], [address] [place] [id number] (CLIA# [id number]). Diagnostician: Andria Camarena MD Pathologist Electronically Signed 04/02/2020 Copies: ~ PATIENT NAME: ROYA DE LEON PATHOLOGY DATE OF : 89 REPORT #: [id number] PHYSICIAN: TOD SCHMITZ PCP: ALANNAH MAGUIRE MD REPORT IS CONFIDENTIAL AND NOT TO BE RELEASED WITHOUT AUTHORIZATION
--- NOTE | 2020-04-08 16:01 | EKG ---
[facility] [address] [facility] [place], [place] [address] Signed Normal sinus rhythm Normal ECG No previous ECGs available Confirmed by GIORGIO VIEYRA DO ([id number]) on 04/08/2020 4:00:56 PM Electronically Signed By: GIORGIO VIEYRA DO 04/08/20 1601 PATIENT NAME: ROYA DE LEON PEGGY Electrocardiogram DATE OF : 89 PHYSICIAN: GIORGIO VIEYRA DO REPORT #: [id number] REPORT IS CONFIDENTIAL AND NOT TO BE RELEASED WITHOUT AUTHORIZATION
== END 2020-03-30 11:20 | disposition home or self-care (01) ==
LOC: DS 06:45 → OPS 06:45 → DS 08:30 → OPS 08:30
PROVIDERS: ATTEND General Practice
PROC: 0UDB8ZZ Extraction of Endometrium, Via Natural or Artificial Opening Endoscopic (ICD-10-PCS; principal; 2020-03-30 08:30)
DX: N84.0 Polyp of corpus uteri (principal); N93.9 Abnormal uterine and vaginal bleeding, unspecified; I10 Essential (primary) hypertension; E66.01 Morbid (severe) obesity due to excess calories; Z68.43 Body mass index [BMI] 50.0-59.9, adult; Z87.891 Personal history of nicotine dependence; Z79.3 Long term (current) use of hormonal contraceptives
CPT/HCPCS: 00952; 88305; 93005; 93010; J1100; J1885; J2001; J2250; J2405; J2704; J7121

== ENCOUNTER 2022-09-10 15:15 | Emergency (ER) | payer OTHER ==
[~2022-09-10] VITALS: Ht 160 cm; Wt 127.1 kg
[~2022-09-10 15:15] MED LIST changes: +MOTRIN IB200 MG PO
--- OUTSIDE RECORDS SUMMARY | 2022-09-10 15:18 | XMS ---
PreManage Notification: ROYA DE LEON Security Varnish Melter Events No recent Security Events currently on file CRITERIA MET - PDMP CARE PROVIDERS -, [place]- Dentist: Professional Shopper [facility] PHONE: [phone] Lucio has no Care Guidelines for this patient. E.Coni VISIT COUNT (12 MO.) 1 ELICEO Zaidi TOTAL 1 NOTE: Visits indicate total known visits. ED/UCC VISIT TRACKING (12 MO.) 09/10/2022 15:15 [place] TYPE: Emergency COMPLAINT: - [place] INPATIENT VISIT TRACKING (12 MO.) No inpatient visits to display in this time frame [email or web address]
[2022-09-10] MEDS ORDERED: ESCITALOPRAM OX10 MG PO (15:33)
[2022-09-10] MEDS ORDERED: PHENTERMINE HCL15 MG PO (15:33)
[2022-09-10] MEDS ORDERED: SILVADENE20 GM TOP (16:34)
[2022-09-10 16:46] VITALS: BP 148/89
== END 2022-09-10 16:48 | disposition home or self-care (01) ==
LOC: ED 15:15
DX: L55.0 Sunburn of first degree (principal); I10 Essential (primary) hypertension; Z79.899 Other long term (current) drug therapy
CPT/HCPCS: 36415; 80053; 83880; 85025